=== PATIENT | female | born 1935 | race Caucasian/White ===

== ENCOUNTER 2020-12-04 07:10 | Inpatient (IN) | payer MEDICARE ==
--- NOTE | 2020-12-04 07:35 | EDM.PDOC ---
ED HPI GENERAL MEDICAL PROBLEM - General Chief Complaint: General Stated Complaint: CHILLS Time Seen by Provider: 12/04/20 07:25 Source of Information: Reports: Patient History Limitations: Reports: No Limitations - History of Present Illness INITIAL COMMENTS - FREE TEXT/NARRATIVE: 85-year-old female who is a somewhat rambling historian but does report that she has been having intermittent cough and chills for about the past 3 weeks but beginning Friday she has had worsening cough with nausea and vomiting and persisting chills. She states that she has been able to eat and drink but really hasn't had much of an appetite. The cough has been productive of white/yellow phlegm and was worse last night with several episodes of emesis after the cough. This morning beginning at 5 AM, she developed shaking chills but was unable to measure her temperature because "I can't really see". No diarrhea. No dysuria or hematuria. She denies any pain at present and reports that she has had no pain is associated with this. She would rate her pain now as a 0/10. She feels very fatigued and somewhat short of breath. No syncope or presyncope. She presents to the emergency department via private vehicle by one of her neighbors. The neighbor that brought the patient and feels that the patient is somewhat confused about events but the patient is oriented to person, place and time but she seems somewhat confabulatory about the details surrounding her illness. There are no other associated signs or symptoms. There are no other modifying factors. Onset: Other (? 3 weeks ago) Duration: Getting Worse Location: Reports: Other (No pain) Quality: Reports: Other (Not applicable) Context: Reports: Other (As above.) Associated Symptoms: Reports: Cough, Fever/Chills, Malaise, Nausea/Vomiting, Shortness of Breath Treatments LEAD COOK: Reports: Other (see below) (Nothing.) - Related Data Allergies Allergy/AdvReac Type Severity Reaction Status Date / Time No Known Allergies Allergy Verified 12/04/20 07:20 Home Meds: Home Meds Omeprazole 20 mg PO 12/04/20 [History] lisinopriL [Lisinopril] 10 mg PO 12/04/20 [History] Past Medical History Cardiovascular History: Reports: Hypertension Gastrointestinal History: Reports: Other (See Below) Other Gastrointestinal History: acid reflux - Past Surgical History HEENT Surgical History: Reports: Cataract Surgery GI Surgical History: Reports: EGD (Multiple times) Neurological Surgical History: Reports: Lumbar Spine Musculoskeletal Surgical History: Reports: Arthroscopic Knee (Right knee) Social & Family History - Tobacco Use Tobacco Use Status *Q: Never Tobacco User - Caffeine Use Caffeine Use: Reports: Coffee - Alcohol Use Alcohol Use History: No - Recreational Drug Use Recreational Drug Use: No - Living Situation & Occupation Occupation: Retired ED ROS GENERAL - Review of Systems Review Of Systems: See Below Constitutional: Reports: Chills, Malaise HEENT: Reports: No Symptoms Respiratory: Reports: Shortness of Breath, Cough, Sputum Cardiovascular: Reports: No Symptoms GI/Abdominal: Reports: Nausea, Vomiting : Reports: No Symptoms Musculoskeletal: Reports: Other (Body aches.) Skin: Reports: No Symptoms Neurological: Reports: Weakness (Generalized) Psychiatric: Reports: No Symptoms Hematologic/Lymphatic: Reports: No Symptoms Immunologic: Reports: Other (Patient has had the 2 vaccines for Covid) ED EXAM, GENERAL - Physical Exam Exam: See Below Exam Limited By: No Limitations General Appearance: Alert, WD/WN, Mild Distress Eye Exam: Bilateral Eye: EOMI, Normal Inspection, PERRL Ears: Normal External Exam, Hearing Grossly Normal Ear Exam: Bilateral Ear: Auricle Normal Nose: Normal Inspection, Normal Mucosa, No Blood Throat/Mouth: Normal Voice, No Airway Compromise, Other (Dry mucous membranes) Head: Atraumatic, Normocephalic Neck: Normal Inspection, Supple, Non-Tender, Full Range of Motion Respiratory/Chest: No Respiratory Distress, No Accessory Muscle Use, Chest Non- Tender, Rales (Left sided), Rhonchi (Left-sided) Cardiovascular: Regular Rate, Rhythm, No Gallop, No Murmur, Tachycardia Peripheral Pulses: 2+: Radial (L), Radial (R), Dorsalis Pedis (L), Dorsalis Pedis (R) GI/Abdominal: Normal Bowel Sounds, Soft, Non-Tender, No Mass Back Exam: Normal Inspection, Full Range of Motion Extremities: Normal Inspection, Normal Range of Motion, Non-Tender, No Pedal Edema, Normal Capillary Refill Neurological: Alert, Oriented, CN II-XII Intact Psychiatric: Normal Affect Skin Exam: Warm, Dry, Intact, Normal Color, No Rash #1 Interpretation EKG Date: 12/04/20 Time: 07:53 Rhythm: Other (Sinus tachycardia) Rate (Beats/Min): 115 [place]: LAD-Left [place] Deviation P-Wave: Enlarged (After atrial enlargement) QRS: Normal ST-T: Normal QT: Prolonged (Prolonged QTc.) Comparison: NA - No Prior EKG Course - Vital Signs Last Recorded V/S: Last Vital Signs Temp 36.9 C 12/04/20 11:39 Pulse 64 12/04/20 12:18 Resp 20 12/04/20 11:39 BP 123/63 12/04/20 12:18 Pulse Ox 93 L 12/04/20 11:39 - Orders/Labs/Meds Orders: Active Orders 24 hr Category Date Time Status EKG Documentation Completion [RC] ASDIRECTED Care 12/04/20 07:49 Active CULTURE BLOOD [BC] Urgent Lab 12/04/20 08:20 Received CULTURE BLOOD [BC] Urgent Lab 12/04/20 08:25 Received Sodium Chloride 0.9% [Normal Saline] 1,000 ml Med 12/04/20 08:00 Active IV ASDIRECTED Sodium Chloride 0.9% [Saline Flush] Med 12/04/20 07:48 Active 10 ml FLUSH ASDIRECTED PRN Blood Culture x2 Reflex Set [OM.PC] Urgent Oth 12/04/20 07:48 Ordered Peripheral IV Insertion Adult [OM.PC] Routine Oth 12/04/20 07:48 Ordered EKG 12 Lead [EK] Routine Ther 12/04/20 07:48 Ordered Medication Orders Acetaminophen (Acetaminophen 325 Mg Tab) 650 mg PO Q4H PRN PRN Reason: Pain (Mild 1-3)/fever Ceftriaxone Sodium (Ceftriaxone 2 Gm Vial) 2 gm IVPUSH Q24H [facility] Last Admin: 12/04/20 11:20 Dose: 2 gm Documented by: JYOTI Sodium Chloride (Normal Saline) 1,000 mls @ 100 mls/hr IV ASDIRECTED [facility] Last Admin: 12/04/20 08:55 Dose: 100 mls/hr Documented by: JYOTI Azithromycin 500 mg/ Sodium (Chloride) 250 mls @ 250 mls/hr IV Q24H [facility] Last Admin: 12/04/20 11:29 Dose: 250 mls/hr Documented by: JYOTI Ondansetron HCl (Ondansetron 4 Mg/2 Ml Sdv) 4 mg IV Q6H PRN PRN Reason: Nausea/Vomiting Sodium Chloride (Sodium Chloride 0.9% 10 Ml Syringe) 10 ml FLUSH ASDIRECTED PRN PRN Reason: Keep Vein Open Last Admin: 12/04/20 08:15 Dose: 10 ml Documented by: JYOTI Labs: Laboratory Tests 12/04/20 12/04/20 12/04/20 Range/Units 08:04 08:20 08:20 WBC 13.0 H (3.0-10.3) x10-3/uL RBC 3.84 (3.60-5.20) x10(6)uL Hgb 12.6 (11.4-15.5) g/dL Hct 37.9 (34.2-48.2) % MCV 98.6 (76.7-100.5) fL MCH 32.7 (23.9-33.9) pg MCHC 33.2 (31.9-34.8) g/dL RDW 13.2 (12.3-16.5) % Plt Count 259 (151-488) x10(3)uL MPV 8.2 (7.1-12.4) fL Add Manual Diff Yes Neutrophils % (Manual) 89 H (46-82) % Lymphocytes % (Manual) 8 L (13-37) % Monocytes % (Manual) 3 L (4-12) % Sodium 140 (135-145) mmol/L Potassium 3.7 (3.5-5.3) mmol/L Chloride 101 (100-110) mmol/L Carbon Dioxide 27 (21-32) mmol/L BUN 16 (7-18) mg/dL Creatinine 0.8 (0.55-1.02) mg/dL Est Cr Clr Drug Dosing 44.08 mL/min Estimated GFR (MDRD) > 60 (>60) BUN/Creatinine Ratio 20.0 (9-20) Glucose 108 (80-116) mg/dL Lactic Acid (0.4-2.0) mmol/L Calcium 7.8 L (8.6-10.2) mg/dL Magnesium 1.6 L (1.8-2.5) mg/dL Total Bilirubin 0.5 (0.1-1.3) mg/dL AST 16 (5-25) IU/L ALT 19 (12-36) U/L Alkaline Phosphatase 65 (56-112) IU/L Troponin I (4.0-60.3) pg/mL C-Reactive Protein (0.5-0.9) mg/dL Total Protein 6.8 (6.0-8.0) g/dL Albumin 3.4 (3.2-4.6) g/dL Globulin 3.4 g/dL Albumin/Globulin Ratio 1.0 Urine Color Yellow (YELLOW) Urine Appearance Clear (CLEAR) Urine pH 5.0 (5.0-6.5) Ur Specific Byron 1.020 (1.010-1.025) Urine Protein Negative (NEGATIVE) mg/dL Urine Glucose (UA) Normal (NORMAL) mg/dL Urine Ketones Negative (NEGATIVE) mg/dL Urine Occult Blood Moderate H (NEGATIVE) Urine Nitrite Negative (NEGATIVE) Urine Bilirubin Negative (NEGATIVE) Urine Urobilinogen Normal (NEGATIVE) mg/dL Ur Leukocyte Esterase Negative (NEGATIVE) Urine RBC 0-5 (0-5) Urine WBC 0-5 (0-5) Ur Squamous Epith Cells Few H (NS,R,O) Urine Bacteria Few H (NS) SARS-CoV-2 RNA (SANTOS) (NEGATIVE) 12/04/20 12/04/20 12/04/20 Range/Units 08:20 08:20 08:30 WBC (3.0-10.3) x10-3/uL RBC (3.60-5.20) x10(6)uL Hgb (11.4-15.5) g/dL Hct (34.2-48.2) % MCV (76.7-100.5) fL MCH (23.9-33.9) pg MCHC (31.9-34.8) g/dL RDW (12.3-16.5) % Plt Count (151-488) x10(3)uL MPV (7.1-12.4) fL Add Manual Diff Neutrophils % (Manual) (46-82) % Lymphocytes % (Manual) (13-37) % Monocytes % (Manual) (4-12) % Sodium (135-145) mmol/L Potassium (3.5-5.3) mmol/L Chloride (100-110) mmol/L Carbon Dioxide (21-32) mmol/L BUN (7-18) mg/dL Creatinine (0.55-1.02) mg/dL Est Cr Clr Drug Dosing mL/min Estimated GFR (MDRD) (>60) BUN/Creatinine Ratio (9-20) Glucose (80-116) mg/dL Lactic Acid 1.1 (0.4-2.0) mmol/L Calcium (8.6-10.2) mg/dL Magnesium (1.8-2.5) mg/dL Total Bilirubin (0.1-1.3) mg/dL AST (5-25) IU/L ALT (12-36) U/L Alkaline Phosphatase (56-112) IU/L Troponin I 18.3 (4.0-60.3) pg/mL C-Reactive Protein 6.6 H* (0.5-0.9) mg/dL Total Protein (6.0-8.0) g/dL Albumin (3.2-4.6) g/dL Globulin g/dL Albumin/Globulin Ratio Urine Color (YELLOW) Urine Appearance (CLEAR) Urine pH (5.0-6.5) Ur Specific Byron (1.010-1.025) Urine Protein (NEGATIVE) mg/dL Urine Glucose (UA) (NORMAL) mg/dL Urine Ketones (NEGATIVE) mg/dL Urine Occult Blood (NEGATIVE) Urine Nitrite (NEGATIVE) Urine Bilirubin (NEGATIVE) Urine Urobilinogen (NEGATIVE) mg/dL Ur Leukocyte Esterase (NEGATIVE) Urine RBC (0-5) Urine WBC (0-5) Ur Squamous Epith Cells (NS,R,O) Urine Bacteria (NS) SARS-CoV-2 RNA (SANTOS) Negative (NEGATIVE) Meds: Medications Generic Name Dose Route Start Last Admin Trade Name Freq PRN Reason Stop Dose Admin Acetaminophen 650 mg 12/04/20 10:52 Acetaminophen 325 Mg Tab PO Q4H PRN Pain (Mild 1-3)/fever Ceftriaxone Sodium 2 gm 12/04/20 11:00 12/04/20 11:20 Ceftriaxone 2 Gm Vial IVPUSH 2 gm Q24H [facility] Administration Sodium Chloride 1,000 mls @ 100 mls/hr 12/04/20 08:00 12/04/20 08:55 Normal Saline IV 100 mls/hr ASDIRECTED [facility] Administration Azithromycin 500 mg/ Sodium 250 mls @ 250 mls/hr 12/04/20 11:00 12/04/20 11:29 Chloride IV 250 mls/hr Q24H [facility] Administration Ondansetron HCl 4 mg 12/04/20 10:52 Ondansetron 4 Mg/2 Ml Sdv IV Q6H PRN Nausea/Vomiting Sodium Chloride 10 ml 12/04/20 07:48 12/04/20 08:15 Sodium Chloride 0.9% 10 Ml Syringe FLUSH 10 ml ASDIRECTED PRN Administration Keep Vein Open Discontinued Medications Generic Name Dose Route Start Last Admin Trade Name Freq PRN Reason Stop Dose Admin Sodium Chloride 500 mls @ 999 mls/hr 12/04/20 07:51 12/04/20 08:20 Normal Saline IV 12/04/20 08:21 999 mls/hr .BOLUS ONE Administration - Radiology Interpretation Free Text/Narrative:: Chest x-ray PA and lateral showed diffuse pneumonia in the left lung and some pneumonia in the right lung. - Re-Assessments/Exams Free Text/Narrative Re-Assessment/Exam: 12/04/20 10:35: The patient's white blood cell count is 13.0. Her serum electrolyte profile is normal. Her lactate is normal. Her urinalysis was normal. Her chest x-ray shows no pneumonia with left being greater than right. Tachycardia has resolved with IV fluid hydration. With an O2 saturation between 90-94%. She has had no further vomiting. However, the patient did have shaking chills. She has a rather extensive pneumonia in her left lung. She is an octogenarian with some chronic medical issues. She has signs of early sepsis. I feel that she will need admission with IV antibiotics and IV fluid therapy. Her care will take at least 2 midnight hospital stay. I discussed all this with the patient and she would be in agreement with admission to [facility], [place]. In addition, I discussed the patient's CODE STATUS and she tells me that she is a FULL CODE. I will call and discuss the patient's case with Dr. Waller, hospitalist at [facility], [place]. 12/04/20 10:45: I discussed the patient's case with Dr. Waller and he has agreed to admit the patient. I did place some interim orders and he will be placing additional orders. The patient will be treated with Rocephin 2 g IV and Zithromax 500 mg IV. Departure - Departure Time of Disposition: 10:46 Disposition: Admitted As Inpatient 68 Condition: Fair (Stable.) Clinical Impression: Bilateral pneumonia Qualifiers: Pneumonia type: due to unspecified organism Lung location: unspecified part of lung Qualified Code(s): J18.9 - Pneumonia, unspecified organism Sepsis Qualifiers: Sepsis type: sepsis due to unspecified organism Sepsis acute organ dysfunction status: with acute organ dysfunction Severe sepsis acute organ dysfunction type: encephalopathy Severe sepsis shock status: without septic shock Qualified Code(s): A41.9 - Sepsis, unspecified organism - Discharge Information Sepsis Event Note (ED) - Evaluation Sepsis Screening Result: Possible Sepsis Risk - Focused Exam Vital Signs: Vital Signs Temp Pulse Resp BP Pulse Ox 12/04/20 10:30 60 20 135/70 94 L 12/04/20 10:00 94 20 142/64 H 93 L 12/04/20 09:30 91 20 140/62 93 L 12/04/20 09:00 111 H 20 137/60 93 L 12/04/20 08:30 122 H 20 129/83 94 L 12/04/20 08:00 117 H 20 159/72 H 92 L 12/04/20 07:10 38.0 C 124 H 20 167/90 H 92 L - My Orders Last 24 Hours: My Active Orders 12/04/20 07:48 Sodium Chloride 0.9% [Saline Flush] 10 ml FLUSH ASDIRECTED PRN Blood Culture x2 Reflex Set [OM.PC] Urgent Peripheral IV Insertion Adult [OM.PC] Routine EKG 12 Lead [EK] Routine 12/04/20 07:49 EKG Documentation Completion [RC] ASDIRECTED 12/04/20 08:00 Sodium Chloride 0.9% [Normal Saline] 1,000 ml IV ASDIRECTED 12/04/20 08:20 CULTURE BLOOD [BC] Urgent 12/04/20 08:25 CULTURE BLOOD [BC] Urgent - Assessment/Plan Last 24 Hours: My Active Orders 12/04/20 07:48 Sodium Chloride 0.9% [Saline Flush] 10 ml FLUSH ASDIRECTED PRN Blood Culture x2 Reflex Set [OM.PC] Urgent Peripheral IV Insertion Adult [OM.PC] Routine EKG 12 Lead [EK] Routine 12/04/20 07:49 EKG Documentation Completion [RC] ASDIRECTED 12/04/20 08:00 Sodium Chloride 0.9% [Normal Saline] 1,000 ml IV ASDIRECTED 12/04/20 08:20 CULTURE BLOOD [BC] Urgent 12/04/20 08:25 CULTURE BLOOD [BC] Urgent
[2020-12-04] MEDS ORDERED: Sodium Chloride 0.9% 500 ML IV ONE (07:51)
[2020-12-04] MEDS ORDERED: Sodium Chloride 0.9% 1,000 ML IV SCH (08:00)
[2020-12-04] MEDS: Sodium Chloride 0.9% 10 ML Syringe FLUSH PRN ×2 (08:15→19:49)
--- NOTE | 2020-12-04 10:40 | CR ---
INDICATION: Cough, fever, chills. CHEST TWO VIEWS: PA and lateral views of the chest 12/04/20 were compared with 09/20/12 revealing apparent resolution of an infiltrate that had a rounded appearance in the right lung base. There is now central infiltration extensively on the left with perhaps some very minimal patchy infiltration centrally on the right. Findings may be on the basis of pneumonia and should be correlated clinically. No definite CHF is seen. The heart appears to be somewhat enlarged overall. The aorta is tortuous with calcification in the arch. Bridging hyperostotic changes noted in the midthoracic spine. IMPRESSION: Mostly left central pneumonia extending from the upper lung field into the lung base. Followup to clearing is recommended as other etiologies such as neoplasia, although less likely, is difficult to entirely exclude. Report was given by phone to Dr. Carty at approximately 1022 hours, 12/04/20. [facility]
[2020-12-04] MEDS ORDERED: Ondansetron 4 MG/2 ML SDV IV PRN (10:52)
[2020-12-04] MEDS: cefTRIAXone 2 GM Vial IVPUSH SCH (11:20)
[2020-12-04] MEDS: Azithromycin 500 MG in Sodium Chloride 0.9% 250 ML IV SCH (11:29)
[2020-12-04] MEDS: Acetaminophen 325 MG Tab PO PRN ×2 (12:45→21:12)
--- NOTE | 2020-12-04 12:54 | PCM.HP.2 ---
H&P History of Present Illness - General Date of Service: 12/04/20 Admit Problem/Dx: Admission Diagnosis/Problem Admission Diagnosis/Problem Bilateral pneumonia - History of Present Illness Initial Comments - Free Text/Narative: 85-year-old lady resented to the emergency department after having intermittent cough and chills for about the past 3 weeks. Friday, approximately 2 days ago, she has had increased cough with nausea, vomiting, and persisting chills. She has not had difficulty with eating or drinking but may not have her regular appetite over the last 2 to 3 weeks. This morning she awoke to fever, chills, shaking, cough productive of yellow phlegm, and posttussive emesis. She denies sick contact, pain, chest pain, abdominal pain, diarrhea. She was brought to the emergency department by friends who describe her as being not herself. Evaluation in the emergency department revealed sepsis with leukocytosis and likely ammonia on chest x-ray. She will be admitted as inpatient and treated wi th IV antibiotics including Rocephin and azithromycin. She will be given occupational physical therapy. Onset of Symptoms: Reports: Gradual Duration of Symptoms: Reports: Week(s): - Related Data Allergies/Adverse Reactions: Allergies Allergy/AdvReac Type Severity Reaction Status Date / Time No Known Allergies Allergy Verified 12/04/20 07:20 Home Medications: Home Meds Omeprazole 20 mg PO 12/04/20 [History] lisinopriL [Lisinopril] 10 mg PO 12/04/20 [History] Past Medical History - Past Health History Medical/Surgical History: Denies Medical/Surgical History HEENT History: Reports: Cataract, Macular Degeneration Cardiovascular History: Reports: Heart Murmur, Hypertension Gastrointestinal History: Reports: GERD, Other (See Below) Other Gastrointestinal History: acid reflux Genitourinary History: Reports: None [employer] History: Reports: Musculoskeletal History: Reports: Arthritis, Back Pain, Chronic, Neck Pain, Chronic Neurological History: Reports: None Psychiatric History: Reports: None Hematologic History: Reports: None Immunologic History: Reports: None Oncologic (Cancer) History: Reports: None - Infectious Disease History Infectious Disease History: Reports: Chicken Pox, Influenza, Measles - Past Surgical History Head Surgeries/Procedures: Reports: None HEENT Surgical History: Reports: Cataract Surgery GI Surgical History: Reports: Colonoscopy, EGD Neurological Surgical History: Reports: Lumbar Spine Musculoskeletal Surgical History: Reports: Arthroscopic Knee Social & Family History - Family History Family Medical History: No Pertinent Family History - Tobacco Use Tobacco Use Status *Q: Never Tobacco User - Caffeine Use Caffeine Use: Reports: Coffee - Recreational Drug Use Recreational Drug Use: No - Living Situation & Occupation Occupation: Retired H&P Review of Systems - Review of Systems: Review Of Systems: See Below General: Reports: Fever, Chills, Malaise, Weakness, Fatigue, Diaphoresis, Decreased Appetite HEENT: Reports: No Symptoms Pulmonary: Reports: Shortness of Breath, Cough Cardiovascular: Reports: No Symptoms Gastrointestinal: Reports: Nausea, Vomiting Genitourinary: Reports: No Symptoms Musculoskeletal: Reports: No Symptoms Skin: Reports: No Symptoms Neurological: Reports: Confusion Hematologic/Lymphatic: Reports: No Symptoms Immunologic: Reports: No Symptoms Exam - Exam Exam: See Below - Vital Signs Vital Signs: Last Vital Signs Temp 36.9 C 12/04/20 11:39 Pulse 64 12/04/20 12:18 Resp 20 12/04/20 11:39 BP 123/63 12/04/20 12:18 Pulse Ox 93 L 12/04/20 11:39 Weight: 65.227 kg - Exam Quality Assessment: Supplemental Oxygen, DVT Prophylaxis, Skin Breakdown General: Alert, Oriented, Cooperative HEENT: PERRLA, EOMI Neck: Supple Lungs: Normal Respiratory Effort, Rales Cardiovascular: Regular Rate, Regular Rhythm, Systolic Murmur GI/Abdominal Exam: Normal Bowel Sounds Back Exam: Normal Inspection Extremities: Normal Inspection Peripheral Pulses: 2+: Radial (L), Radial (R), Dorsalis Pedis (L), Dorsalis Pedis (R) Skin: Warm, Dry Neurological: Cranial Nerves Intact Neuro Extensive - Mental Status: Alert, Oriented x3, Normal Mood/Affect Psychiatric: Alert, Normal Affect, Normal Mood - Patient Data Lab Results Last 24 hrs: Laboratory Results - last 24 hr 12/04/20 12/04/20 12/04/20 Range/Units 08:04 08:20 08:20 WBC 13.0 H (3.0-10.3) x10-3/uL RBC 3.84 (3.60-5.20) x10(6)uL Hgb 12.6 (11.4-15.5) g/dL Hct 37.9 (34.2-48.2) % MCV 98.6 (76.7-100.5) fL MCH 32.7 (23.9-33.9) pg MCHC 33.2 (31.9-34.8) g/dL RDW 13.2 (12.3-16.5) % Plt Count 259 (151-488) x10(3)uL MPV 8.2 (7.1-12.4) fL Add Manual Diff Yes Neutrophils % (Manual) 89 H (46-82) % Lymphocytes % (Manual) 8 L (13-37) % Monocytes % (Manual) 3 L (4-12) % Sodium 140 (135-145) mmol/L Potassium 3.7 (3.5-5.3) mmol/L Chloride 101 (100-110) mmol/L Carbon Dioxide 27 (21-32) mmol/L BUN 16 (7-18) mg/dL Creatinine 0.8 (0.55-1.02) mg/dL Est Cr Clr Drug Dosing 44.08 mL/min Estimated GFR (MDRD) > 60 (>60) BUN/Creatinine Ratio 20.0 (9-20) Glucose 108 (80-116) mg/dL Lactic Acid (0.4-2.0) mmol/L Calcium 7.8 L (8.6-10.2) mg/dL Magnesium 1.6 L (1.8-2.5) mg/dL Total Bilirubin 0.5 (0.1-1.3) mg/dL AST 16 (5-25) IU/L ALT 19 (12-36) U/L Alkaline Phosphatase 65 (56-112) IU/L Troponin I (4.0-60.3) pg/mL C-Reactive Protein (0.5-0.9) mg/dL Total Protein 6.8 (6.0-8.0) g/dL Albumin 3.4 (3.2-4.6) g/dL Globulin 3.4 g/dL Albumin/Globulin Ratio 1.0 Urine Color Yellow (YELLOW) Urine Appearance Clear (CLEAR) Urine pH 5.0 (5.0-6.5) Ur Specific Britt 1.020 (1.010-1.025) Urine Protein Negative (NEGATIVE) mg/dL Urine Glucose (UA) Normal (NORMAL) mg/dL Urine Ketones Negative (NEGATIVE) mg/dL Urine Occult Blood Moderate H (NEGATIVE) Urine Nitrite Negative (NEGATIVE) Urine Bilirubin Negative (NEGATIVE) Urine Urobilinogen Normal (NEGATIVE) mg/dL Ur Leukocyte Esterase Negative (NEGATIVE) Urine RBC 0-5 (0-5) Urine WBC 0-5 (0-5) Ur Squamous Epith Cells Few H (NS,R,O) Urine Bacteria Few H (NS) SARS-CoV-2 RNA (SANTOS) (NEGATIVE) 12/04/20 12/04/20 12/04/20 Range/Units 08:20 08:20 08:30 WBC (3.0-10.3) x10-3/uL RBC (3.60-5.20) x10(6)uL Hgb (11.4-15.5) g/dL Hct (34.2-48.2) % MCV (76.7-100.5) fL MCH (23.9-33.9) pg MCHC (31.9-34.8) g/dL RDW (12.3-16.5) % Plt Count (151-488) x10(3)uL MPV (7.1-12.4) fL Add Manual Diff Neutrophils % (Manual) (46-82) % Lymphocytes % (Manual) (13-37) % Monocytes % (Manual) (4-12) % Sodium (135-145) mmol/L Potassium (3.5-5.3) mmol/L Chloride (100-110) mmol/L Carbon Dioxide (21-32) mmol/L BUN (7-18) mg/dL Creatinine (0.55-1.02) mg/dL Est Cr Clr Drug Dosing mL/min Estimated GFR (MDRD) (>60) BUN/Creatinine Ratio (9-20) Glucose (80-116) mg/dL Lactic Acid 1.1 (0.4-2.0) mmol/L Calcium (8.6-10.2) mg/dL Magnesium (1.8-2.5) mg/dL Total Bilirubin (0.1-1.3) mg/dL AST (5-25) IU/L ALT (12-36) U/L Alkaline Phosphatase (56-112) IU/L Troponin I 18.3 (4.0-60.3) pg/mL C-Reactive Protein 6.6 H* (0.5-0.9) mg/dL Total Protein (6.0-8.0) g/dL Albumin (3.2-4.6) g/dL Globulin g/dL Albumin/Globulin Ratio Urine Color (YELLOW) Urine Appearance (CLEAR) Urine pH (5.0-6.5) Ur Specific Britt (1.010-1.025) Urine Protein (NEGATIVE) mg/dL Urine Glucose (UA) (NORMAL) mg/dL Urine Ketones (NEGATIVE) mg/dL Urine Occult Blood (NEGATIVE) Urine Nitrite (NEGATIVE) Urine Bilirubin (NEGATIVE) Urine Urobilinogen (NEGATIVE) mg/dL Ur Leukocyte Esterase (NEGATIVE) Urine RBC (0-5) Urine WBC (0-5) Ur Squamous Epith Cells (NS,R,O) Urine Bacteria (NS) SARS-CoV-2 RNA (SANTOS) Negative (NEGATIVE) Result Diagrams: 12/04/20 08:20 12/04/20 08:20 Sepsis Event Note - Evaluation Sepsis Screening Result: Sepsis Risk - Focused Exam Vital Signs: Vital Signs Temp Pulse Resp BP Pulse Ox 12/04/20 12:18 64 123/63 12/04/20 11:39 36.9 C 108 H 20 188/67 H 93 L 12/04/20 10:30 60 20 135/70 94 L 12/04/20 10:00 94 20 142/64 H 93 L 12/04/20 09:30 91 20 140/62 93 L 12/04/20 09:00 111 H 20 137/60 93 L 12/04/20 08:30 122 H 20 129/83 94 L 12/04/20 08:00 117 H 20 159/72 H 92 L 12/04/20 07:10 38.0 C 124 H 20 167/90 H 92 L - Problem List (1) Nausea and vomiting SNOMED Code(s): 28618682 ICD Code: R11.2 - NAUSEA WITH VOMITING, UNSPECIFIED Status: Acute Current Visit: Yes (2) Decreased appetite SNOMED Code(s): 82130484 ICD Code: R63.0 - ANOREXIA Status: Acute Current Visit: Yes (3) Confusion SNOMED Code(s): 478519356 ICD Code: R41.0 - DISORIENTATION, UNSPECIFIED Status: Acute Current Visit: Yes (4) Bilateral pneumonia SNOMED Code(s): 284380569 ICD Code: J18.9 - PNEUMONIA, UNSPECIFIED ORGANISM Status: Acute Current Visit: Yes Qualifiers: Pneumonia type: due to unspecified organism Lung location: unspecified part of lung Qualified Code(s): J18.9 - Pneumonia, unspecified organism (5) Sepsis SNOMED Code(s): 16926096 ICD Code: A41.9 - SEPSIS, UNSPECIFIED ORGANISM Status: Acute Current Visit: Yes Qualifiers: Sepsis type: sepsis due to unspecified organism Sepsis acute organ dysfunction status: with acute organ dysfunction Severe sepsis acute organ dysfunction type: encephalopathy Severe sepsis shock status: without septic shock Qualified Code(s): A41.9 - Sepsis, unspecified organism; R65.20 - Severe sepsis without septic shock; G93.40 - Encephalopathy, unspecified (6) GERD (gastroesophageal reflux disease) SNOMED Code(s): 724972755 ICD Code: K21.9 - GASTRO-ESOPHAGEAL REFLUX DISEASE WITHOUT ESOPHAGITIS Status: Chronic Current Visit: Yes (7) Hypertension SNOMED Code(s): 76356391 ICD Code: I10 - ESSENTIAL (PRIMARY) HYPERTENSION Status: Chronic Current Visit: Yes (8) Leukocytosis SNOMED Code(s): 711665806, 534726564 ICD Code: D72.829 - ELEVATED WHITE BLOOD CELL COUNT, UNSPECIFIED Status: Acute Current Visit: Yes (9) Hypomagnesemia SNOMED Code(s): 822137220 ICD Code: E83.42 - HYPOMAGNESEMIA Status: Acute Current Visit: Yes Problem List Initiated/Reviewed/Updated: Yes Orders Last 24hrs: Active Orders 24 hr Category Date Time Status Admission Status [Patient Status] [ADT] Routine ADT 12/04/20 10:46 Active Intake and Output [RC] QSHIFT Care 12/04/20 10:53 Active May Shower [RC] ASDIRECTED Care 12/04/20 10:52 Active Oxygen Therapy [RC] PRN Care 12/04/20 10:52 Active Supplement (Dietary) [Dietary Supplements] [RC] Care 12/04/20 12:48 Ordered WITHMEALSANDBED Up With Assistance [RC] ASDIRECTED Care 12/04/20 10:52 Active Vital Signs [RC] Q4H Care 12/04/20 10:52 Active OT Evaluation and Treatment [CONS] Routine Cons 12/04/20 10:52 Active PT Evaluation and Treatment [CONS] Routine Cons 12/04/20 10:52 Active 2 Gram Sodium Diet [DIET] Diet 12/04/20 Lunch Active CULTURE BLOOD [BC] Urgent Lab 12/04/20 08:20 Received CULTURE BLOOD [BC] Urgent Lab 12/04/20 08:25 Received Acetaminophen [TylenoL] Med 12/04/20 10:52 Active 650 mg PO Q4H PRN Azithromycin [Zithromax] 500 mg Med 12/04/20 11:00 Active Sodium Chloride 0.9% [Normal Saline (AdvBag)] 250 ml IV Q24H Ondansetron [Zofran] Med 12/04/20 10:52 Active 4 mg IV Q6H PRN Sodium Chloride 0.9% [Saline Flush] Med 12/04/20 07:48 Active 10 ml FLUSH ASDIRECTED PRN cefTRIAXone [Rocephin] Med 12/04/20 11:00 Active 2 gm IVPUSH Q24H lisinopriL [Prinivil] Med 12/04/20 13:00 Unverified DOSE UNIT RTE FREQ Blood Culture x2 Reflex Set [OM.PC] Urgent Oth 12/04/20 07:48 Ordered Peripheral IV Insertion Adult [OM.PC] Routine Oth 12/04/20 07:48 Ordered Resuscitation Status Routine Resus Stat 12/04/20 10:52 Ordered EKG 12 Lead [EK] Routine Ther 12/04/20 07:48 Ordered Medication Orders Acetaminophen (Acetaminophen 325 Mg Tab) 650 mg PO Q4H PRN PRN Reason: Pain (Mild 1-3)/fever Last Admin: 12/04/20 12:45 Dose: 650 mg Documented by: SAIGE Ceftriaxone Sodium (Ceftriaxone 2 Gm Vial) 2 gm IVPUSH Q24H [facility] Last Admin: 12/04/20 11:20 Dose: 2 gm Documented by: JYOTI Azithromycin 500 mg/ Sodium (Chloride) 250 mls @ 250 mls/hr IV Q24H [facility] Last Admin: 12/04/20 11:29 Dose: 250 mls/hr Documented by: JYOTI Ondansetron HCl (Ondansetron 4 Mg/2 Ml Sdv) 4 mg IV Q6H PRN PRN Reason: Nausea/Vomiting Sodium Chloride (Sodium Chloride 0.9% 10 Ml Syringe) 10 ml FLUSH ASDIRECTED PRN PRN Reason: Keep Vein Open Last Admin: 12/04/20 08:15 Dose: 10 ml Documented by: JYOTI Assessment/Plan Comment:: 1. Admit to inpatient due to bilateral pneumonia, age, leukocytosis. Initial treatment will be IV antibiotics with ceftriaxone and azithromycin. Monitor and replenish electrolytes 2. Restart lisinopril, home medication, for hypertension 3. Occupational physical therapy evaluation and treatment 4. DVT prophylaxis: Enoxaparin, 40 mg subcu daily 5. GI prophylaxis: Protonix 40 mg daily po 6. Disposition: Likely 2 to 3 days discharge to home with continued oral antibiotics
[2020-12-04] MEDS ORDERED: Enoxaparin 60 MG/0.6 ML Syringe SUBCUT SCH (13:00)
[2020-12-04] MEDS ORDERED: Magnesium Sulfate/Water 4 GM in Premix Bag 1 BAG IV ONE (13:04)
[2020-12-04] MEDS ORDERED: Magnesium Sulfate/Water 2 GM/50 ML BAG IV ONE (13:30)
[2020-12-04] MEDS: Enoxaparin 40 MG/0.4 ML Syringe SUBCUT SCH (13:56)
[2020-12-04] MEDS ORDERED: Lisinopril 10 MG Tab PO ONE (14:00)
[2020-12-04] MEDS: Pantoprazole 40 MG Tab.CR PO SCH (21:12)
[2020-12-05] MEDS: Lisinopril 10 MG Tab PO SCH (08:28)
--- NOTE | 2020-12-05 08:40 | PCM.PN ---
- General Info Date of Service: 12/05/20 Admission Dx/Problem (Free Text): Admission Diagnosis/Problem Admission Diagnosis/Problem Bilateral pneumonia Subjective Update: Patient states that she feels better today, her breathing is better, strength is better, she slept well last night for the first time in several days, and she has no new concerns or complaints at this time Functional Status: Reports: Pain Controlled, Tolerating Diet, Ambulating, Urinating - Review of Systems General: Reports: Weakness, Fatigue, Other (Improved) HEENT: Reports: No Symptoms Pulmonary: Reports: Shortness of Breath, Cough, Other (Improved) Cardiovascular: Reports: No Symptoms Gastrointestinal: Reports: No Symptoms Genitourinary: Reports: No Symptoms Musculoskeletal: Reports: No Symptoms Skin: Reports: No Symptoms Neurological: Reports: No Symptoms Psychiatric: Reports: No Symptoms - Patient Data Vitals - Most Recent: Last Vital Signs Temp 36.7 C 12/05/20 08:26 Pulse 81 12/05/20 08:26 Resp 20 12/05/20 08:26 BP 137/69 12/05/20 08:28 Pulse Ox 97 12/05/20 08:26 Weight - Most Recent: 66.587 kg I&O - Last 24 Hours: Intake & Output 12/04/20 12/05/20 12/05/20 22:59 06:59 14:59 Intake Total 1670 150 Output Total 650 900 Balance 1020 -750 Lab Results Last 24 Hours: Laboratory Results - last 24 hr 12/04/20 12/04/20 12/04/20 Range/Units 08:04 08:20 08:20 WBC 13.0 H (3.0-10.3) x10-3/uL RBC 3.84 (3.60-5.20) x10(6)uL Hgb 12.6 (11.4-15.5) g/dL Hct 37.9 (34.2-48.2) % MCV 98.6 (76.7-100.5) fL MCH 32.7 (23.9-33.9) pg MCHC 33.2 (31.9-34.8) g/dL RDW 13.2 (12.3-16.5) % Plt Count 259 (151-488) x10(3)uL MPV 8.2 (7.1-12.4) fL Neut % (Auto) (30.8-76.2) % Lymph % (Auto) (18.4-52.1) % Loving % (Auto) (4.4-15.7) % Eos % (Auto) (0.6-8.1) % Baso % (Auto) (0.2-1.5) % Neut # (Auto) (1.5-6.3) x10-3/uL Lymph # (Auto) (1.0-4.4) x10-3/uL Loving # (Auto) (0.3-1.0) x10-3/uL Eos # (Auto) (0.0-0.8) x10-3/uL Baso # (Auto) (0.0-0.1) x10-3/uL Add Manual Diff Yes Neutrophils % (Manual) 89 H (46-82) % Lymphocytes % (Manual) 8 L (13-37) % Monocytes % (Manual) 3 L (4-12) % Sodium 140 (135-145) mmol/L Potassium 3.7 (3.5-5.3) mmol/L Chloride 101 (100-110) mmol/L Carbon Dioxide 27 (21-32) mmol/L BUN 16 (7-18) mg/dL Creatinine 0.8 (0.55-1.02) mg/dL Est Cr Clr Drug Dosing 44.08 mL/min Estimated GFR (MDRD) > 60 (>60) BUN/Creatinine Ratio 20.0 (9-20) Glucose 108 (80-116) mg/dL Lactic Acid (0.4-2.0) mmol/L Calcium 7.8 L (8.6-10.2) mg/dL Magnesium 1.6 L (1.8-2.5) mg/dL Total Bilirubin 0.5 (0.1-1.3) mg/dL AST 16 (5-25) IU/L ALT 19 (12-36) U/L Alkaline Phosphatase 65 (56-112) IU/L Troponin I (4.0-60.3) pg/mL C-Reactive Protein (0.5-0.9) mg/dL Total Protein 6.8 (6.0-8.0) g/dL Albumin 3.4 (3.2-4.6) g/dL Globulin 3.4 g/dL Albumin/Globulin Ratio 1.0 Urine Color Yellow (YELLOW) Urine Appearance Clear (CLEAR) Urine pH 5.0 (5.0-6.5) Ur Specific Elsie 1.020 (1.010-1.025) Urine Protein Negative (NEGATIVE) mg/dL Urine Glucose (UA) Normal (NORMAL) mg/dL Urine Ketones Negative (NEGATIVE) mg/dL Urine Occult Blood Moderate H (NEGATIVE) Urine Nitrite Negative (NEGATIVE) Urine Bilirubin Negative (NEGATIVE) Urine Urobilinogen Normal (NEGATIVE) mg/dL Ur Leukocyte Esterase Negative (NEGATIVE) Urine RBC 0-5 (0-5) Urine WBC 0-5 (0-5) Ur Squamous Epith Cells Few H (NS,R,O) Urine Bacteria Few H (NS) SARS-CoV-2 RNA (SANTOS) (NEGATIVE) 12/04/20 12/04/20 12/04/20 Range/Units 08:20 08:20 08:30 WBC (3.0-10.3) x10-3/uL RBC (3.60-5.20) x10(6)uL Hgb (11.4-15.5) g/dL Hct (34.2-48.2) % MCV (76.7-100.5) fL MCH (23.9-33.9) pg MCHC (31.9-34.8) g/dL RDW (12.3-16.5) % Plt Count (151-488) x10(3)uL MPV (7.1-12.4) fL Neut % (Auto) (30.8-76.2) % Lymph % (Auto) (18.4-52.1) % Loving % (Auto) (4.4-15.7) % Eos % (Auto) (0.6-8.1) % Baso % (Auto) (0.2-1.5) % Neut # (Auto) (1.5-6.3) x10-3/uL Lymph # (Auto) (1.0-4.4) x10-3/uL Loving # (Auto) (0.3-1.0) x10-3/uL Eos # (Auto) (0.0-0.8) x10-3/uL Baso # (Auto) (0.0-0.1) x10-3/uL Add Manual Diff Neutrophils % (Manual) (46-82) % Lymphocytes % (Manual) (13-37) % Monocytes % (Manual) (4-12) % Sodium (135-145) mmol/L Potassium (3.5-5.3) mmol/L Chloride (100-110) mmol/L Carbon Dioxide (21-32) mmol/L BUN (7-18) mg/dL Creatinine (0.55-1.02) mg/dL Est Cr Clr Drug Dosing mL/min Estimated GFR (MDRD) (>60) BUN/Creatinine Ratio (9-20) Glucose (80-116) mg/dL Lactic Acid 1.1 (0.4-2.0) mmol/L Calcium (8.6-10.2) mg/dL Magnesium (1.8-2.5) mg/dL Total Bilirubin (0.1-1.3) mg/dL AST (5-25) IU/L ALT (12-36) U/L Alkaline Phosphatase (56-112) IU/L Troponin I 18.3 (4.0-60.3) pg/mL C-Reactive Protein 6.6 H* (0.5-0.9) mg/dL Total Protein (6.0-8.0) g/dL Albumin (3.2-4.6) g/dL Globulin g/dL Albumin/Globulin Ratio Urine Color (YELLOW) Urine Appearance (CLEAR) Urine pH (5.0-6.5) Ur Specific Elsie (1.010-1.025) Urine Protein (NEGATIVE) mg/dL Urine Glucose (UA) (NORMAL) mg/dL Urine Ketones (NEGATIVE) mg/dL Urine Occult Blood (NEGATIVE) Urine Nitrite (NEGATIVE) Urine Bilirubin (NEGATIVE) Urine Urobilinogen (NEGATIVE) mg/dL Ur Leukocyte Esterase (NEGATIVE) Urine RBC (0-5) Urine WBC (0-5) Ur Squamous Epith Cells (NS,R,O) Urine Bacteria (NS) SARS-CoV-2 RNA (SANTOS) Negative (NEGATIVE) 12/05/20 12/05/20 Range/Units 06:20 06:20 WBC 13.7 H (3.0-10.3) x10-3/uL RBC 3.11 L (3.60-5.20) x10(6)uL Hgb 10.2 L (11.4-15.5) g/dL Hct 30.9 L (34.2-48.2) % MCV 99.4 (76.7-100.5) fL MCH 32.9 (23.9-33.9) pg MCHC 33.1 (31.9-34.8) g/dL RDW 13.1 (12.3-16.5) % Plt Count 210 (151-488) x10(3)uL MPV 8.2 (7.1-12.4) fL Neut % (Auto) 78.2 H (30.8-76.2) % Lymph % (Auto) 17.1 L (18.4-52.1) % Loving % (Auto) 3.5 L (4.4-15.7) % Eos % (Auto) 1.0 (0.6-8.1) % Baso % (Auto) 0.2 (0.2-1.5) % Neut # (Auto) 10.7 H (1.5-6.3) x10-3/uL Lymph # (Auto) 2.3 (1.0-4.4) x10-3/uL Loving # (Auto) 0.5 (0.3-1.0) x10-3/uL Eos # (Auto) 0.1 (0.0-0.8) x10-3/uL Baso # (Auto) 0.0 (0.0-0.1) x10-3/uL Add Manual Diff Neutrophils % (Manual) (46-82) % Lymphocytes % (Manual) (13-37) % Monocytes % (Manual) (4-12) % Sodium (135-145) mmol/L Potassium (3.5-5.3) mmol/L Chloride (100-110) mmol/L Carbon Dioxide (21-32) mmol/L BUN (7-18) mg/dL Creatinine (0.55-1.02) mg/dL Est Cr Clr Drug Dosing mL/min Estimated GFR (MDRD) (>60) BUN/Creatinine Ratio (9-20) Glucose (80-116) mg/dL Lactic Acid (0.4-2.0) mmol/L Calcium (8.6-10.2) mg/dL Magnesium 2.1 (1.8-2.5) mg/dL Total Bilirubin (0.1-1.3) mg/dL AST (5-25) IU/L ALT (12-36) U/L Alkaline Phosphatase (56-112) IU/L Troponin I (4.0-60.3) pg/mL C-Reactive Protein (0.5-0.9) mg/dL Total Protein (6.0-8.0) g/dL Albumin (3.2-4.6) g/dL Globulin g/dL Albumin/Globulin Ratio Urine Color (YELLOW) Urine Appearance (CLEAR) Urine pH (5.0-6.5) Ur Specific Elsie (1.010-1.025) Urine Protein (NEGATIVE) mg/dL Urine Glucose (UA) (NORMAL) mg/dL Urine Ketones (NEGATIVE) mg/dL Urine Occult Blood (NEGATIVE) Urine Nitrite (NEGATIVE) Urine Bilirubin (NEGATIVE) Urine Urobilinogen (NEGATIVE) mg/dL Ur Leukocyte Esterase (NEGATIVE) Urine RBC (0-5) Urine WBC (0-5) Ur Squamous Epith Cells (NS,R,O) Urine Bacteria (NS) SARS-CoV-2 RNA (SANTOS) (NEGATIVE) Joel Results Last 24 Hours: Microbiology 12/04/20 08:25 Aerobic Blood Culture - Preliminary Blood - Venous - Lab Draw NO GROWTH AFTER 1 DAY Anaerobic Blood Culture - Preliminary NO GROWTH AFTER 1 DAY 12/04/20 08:20 Aerobic Blood Culture - Preliminary Blood - Venous NO GROWTH AFTER 1 DAY Anaerobic Blood Culture - Preliminary NO GROWTH AFTER 1 DAY Med Orders - Current: Current Medications Acetaminophen (Acetaminophen 325 Mg Tab) 650 mg PO Q4H PRN PRN Reason: Pain (Mild 1-3)/fever Last Admin: 12/04/20 21:12 Dose: 650 mg Documented by: Ceftriaxone Sodium (Ceftriaxone 2 Gm Vial) 2 gm IVPUSH Q24H FORMERLY [facility], 1928–1983 Last Admin: 12/04/20 11:20 Dose: 2 gm Documented by: Enoxaparin Sodium (Enoxaparin 40 Mg/0.4 Ml Syringe) 40 mg SUBCUT DAILY@1300 FOR[facility], [facility]–1983 Last Admin: 12/04/20 13:56 Dose: 40 mg Documented by: Azithromycin 500 mg/ Sodium (Chloride) 250 mls @ 250 mls/hr IV Q24H [facility], [facility]1983 Last Admin: 12/04/20 11:29 Dose: 250 mls/hr Documented by: Lisinopril (Lisinopril 10 Mg Tab) 10 mg PO DAILY FOR[facility], [facility]1983 Last Admin: 12/05/20 08:28 Dose: 10 mg Documented by: Ondansetron HCl (Ondansetron 4 Mg/2 Ml Sdv) 4 mg IV Q6H PRN PRN Reason: Nausea/Vomiting Pantoprazole Sodium (Pantoprazole 40 Mg Tab.Cr) 40 mg PO BEDTIME FOR[facility], [facility]1983 Last Admin: 12/04/20 21:12 Dose: 40 mg Documented by: Sodium Chloride (Sodium Chloride 0.9% 10 Ml Syringe) 10 ml FLUSH ASDIRECTED PRN PRN Reason: Keep Vein Open Last Admin: 12/04/20 19:49 Dose: 10 ml Documented by: Discontinued Medications Enoxaparin Sodium (Enoxaparin 60 Mg/0.6 Ml Syringe) 60 mg SUBCUT Q24H [facility], [facility]1983 Sodium Chloride (Normal Saline) 500 mls @ 999 mls/hr IV .BOLUS ONE Stop: 12/04/20 08:21 Last Admin: 12/04/20 08:20 Dose: 999 mls/hr Documented by: Sodium Chloride (Normal Saline) 1,000 mls @ 100 mls/hr IV ASDIRECTED [facility], [facility] Last Admin: 12/04/20 08:55 Dose: 100 mls/hr Documented by: Magnesium Sulfate (Magnesium Sulfate In Water 2 Gm/50 Ml) 2 gm in 50 mls @ 25 mls/hr IV ONETIME ONE Stop: 12/04/20 15:29 Last Admin: 12/04/20 13:57 Dose: 25 mls/hr Documented by: Lisinopril (Lisinopril 10 Mg Tab) 10 mg PO ONETIME ONE Stop: 12/04/20 14:01 Last Admin: 12/04/20 14:14 Dose: 10 mg Documented by: Comments:: Patient was lying in bed supine, awake, alert, interactive, pleasant. Patient was able to easily stand on her own and stand next to the bed throughout physical exam - Exam Quality Assessment: Supplemental Oxygen, DVT Prophylaxis, Skin Breakdown General: Alert, Oriented, Cooperative, No Acute Distress HEENT: EOMI Lungs: Decreased Breath Sounds, Crackles Cardiovascular: Regular Rate, Irregular Rhythm, Murmurs GI/Abdominal Exam: Normal Bowel Sounds Extremities: Normal Inspection Peripheral Pulses: 2+: Radial (L), Radial (R), Dorsalis Pedis (L), Dorsalis Pedis (R) Skin: Warm, Dry Neurological: No New Focal Deficit Psy/Mental Status: Alert, Normal Affect, Normal Mood - Patient Data Lab Results Last 24 hrs: Laboratory Results - last 24 hr 12/04/20 12/04/20 12/04/20 Range/Units 08:04 08:20 08:20 WBC 13.0 H (3.0-10.3) x10-3/uL RBC 3.84 (3.60-5.20) x10(6)uL Hgb 12.6 (11.4-15.5) g/dL Hct 37.9 (34.2-48.2) % MCV 98.6 (76.7-100.5) fL MCH 32.7 (23.9-33.9) pg MCHC 33.2 (31.9-34.8) g/dL RDW 13.2 (12.3-16.5) % Plt Count 259 (151-488) x10(3)uL MPV 8.2 (7.1-12.4) fL Neut % (Auto) (30.8-76.2) % Lymph % (Auto) (18.4-52.1) % Loving % (Auto) (4.4-15.7) % Eos % (Auto) (0.6-8.1) % Baso % (Auto) (0.2-1.5) % Neut # (Auto) (1.5-6.3) x10-3/uL Lymph # (Auto) (1.0-4.4) x10-3/uL Loving # (Auto) (0.3-1.0) x10-3/uL Eos # (Auto) (0.0-0.8) x10-3/uL Baso # (Auto) (0.0-0.1) x10-3/uL Add Manual Diff Yes Neutrophils % (Manual) 89 H (46-82) % Lymphocytes % (Manual) 8 L (13-37) % Monocytes % (Manual) 3 L (4-12) % Sodium 140 (135-145) mmol/L Potassium 3.7 (3.5-5.3) mmol/L Chloride 101 (100-110) mmol/L Carbon Dioxide 27 (21-32) mmol/L BUN 16 (7-18) mg/dL Creatinine 0.8 (0.55-1.02) mg/dL Est Cr Clr Drug Dosing 44.08 mL/min Estimated GFR (MDRD) > 60 (>60) BUN/Creatinine Ratio 20.0 (9-20) Glucose 108 (80-116) mg/dL Lactic Acid (0.4-2.0) mmol/L Calcium 7.8 L (8.6-10.2) mg/dL Magnesium 1.6 L (1.8-2.5) mg/dL Total Bilirubin 0.5 (0.1-1.3) mg/dL AST 16 (5-25) IU/L ALT 19 (12-36) U/L Alkaline Phosphatase 65 (56-112) IU/L Troponin I (4.0-60.3) pg/mL C-Reactive Protein (0.5-0.9) mg/dL Total Protein 6.8 (6.0-8.0) g/dL Albumin 3.4 (3.2-4.6) g/dL Globulin 3.4 g/dL Albumin/Globulin Ratio 1.0 Urine Color Yellow (YELLOW) Urine Appearance Clear (CLEAR) Urine pH 5.0 (5.0-6.5) Ur Specific Elsie 1.020 (1.010-1.025) Urine Protein Negative (NEGATIVE) mg/dL Urine Glucose (UA) Normal (NORMAL) mg/dL Urine Ketones Negative (NEGATIVE) mg/dL Urine Occult Blood Moderate H (NEGATIVE) Urine Nitrite Negative (NEGATIVE) Urine Bilirubin Negative (NEGATIVE) Urine Urobilinogen Normal (NEGATIVE) mg/dL Ur Leukocyte Esterase Negative (NEGATIVE) Urine RBC 0-5 (0-5) Urine WBC 0-5 (0-5) Ur Squamous Epith Cells Few H (NS,R,O) Urine Bacteria Few H (NS) SARS-CoV-2 RNA (SANTOS) (NEGATIVE) 12/04/20 12/04/20 12/04/20 Range/Units 08:20 08:20 08:30 WBC (3.0-10.3) x10-3/uL RBC (3.60-5.20) x10(6)uL Hgb (11.4-15.5) g/dL Hct (34.2-48.2) % MCV (76.7-100.5) fL MCH (23.9-33.9) pg MCHC (31.9-34.8) g/dL RDW (12.3-16.5) % Plt Count (151-488) x10(3)uL MPV (7.1-12.4) fL Neut % (Auto) (30.8-76.2) % Lymph % (Auto) (18.4-52.1) % Loving % (Auto) (4.4-15.7) % Eos % (Auto) (0.6-8.1) % Baso % (Auto) (0.2-1.5) % Neut # (Auto) (1.5-6.3) x10-3/uL Lymph # (Auto) (1.0-4.4) x10-3/uL Loving # (Auto) (0.3-1.0) x10-3/uL Eos # (Auto) (0.0-0.8) x10-3/uL Baso # (Auto) (0.0-0.1) x10-3/uL Add Manual Diff Neutrophils % (Manual) (46-82) % Lymphocytes % (Manual) (13-37) % Monocytes % (Manual) (4-12) % Sodium (135-145) mmol/L Potassium (3.5-5.3) mmol/L Chloride (100-110) mmol/L Carbon Dioxide (21-32) mmol/L BUN (7-18) mg/dL Creatinine (0.55-1.02) mg/dL Est Cr Clr Drug Dosing mL/min Estimated GFR (MDRD) (>60) BUN/Creatinine Ratio (9-20) Glucose (80-116) mg/dL Lactic Acid 1.1 (0.4-2.0) mmol/L Calcium (8.6-10.2) mg/dL Magnesium (1.8-2.5) mg/dL Total Bilirubin (0.1-1.3) mg/dL AST (5-25) IU/L ALT (12-36) U/L Alkaline Phosphatase (56-112) IU/L Troponin I 18.3 (4.0-60.3) pg/mL C-Reactive Protein 6.6 H* (0.5-0.9) mg/dL Total Protein (6.0-8.0) g/dL Albumin (3.2-4.6) g/dL Globulin g/dL Albumin/Globulin Ratio Urine Color (YELLOW) Urine Appearance (CLEAR) Urine pH (5.0-6.5) Ur Specific Elsie (1.010-1.025) Urine Protein (NEGATIVE) mg/dL Urine Glucose (UA) (NORMAL) mg/dL Urine Ketones (NEGATIVE) mg/dL Urine Occult Blood (NEGATIVE) Urine Nitrite (NEGATIVE) Urine Bilirubin (NEGATIVE) Urine Urobilinogen (NEGATIVE) mg/dL Ur Leukocyte Esterase (NEGATIVE) Urine RBC (0-5) Urine WBC (0-5) Ur Squamous Epith Cells (NS,R,O) Urine Bacteria (NS) SARS-CoV-2 RNA (SANTOS) Negative (NEGATIVE) 12/05/20 12/05/20 Range/Units 06:20 06:20 WBC 13.7 H (3.0-10.3) x10-3/uL RBC 3.11 L (3.60-5.20) x10(6)uL Hgb 10.2 L (11.4-15.5) g/dL Hct 30.9 L (34.2-48.2) % MCV 99.4 (76.7-100.5) fL MCH 32.9 (23.9-33.9) pg MCHC 33.1 (31.9-34.8) g/dL RDW 13.1 (12.3-16.5) % Plt Count 210 (151-488) x10(3)uL MPV 8.2 (7.1-12.4) fL Neut % (Auto) 78.2 H (30.8-76.2) % Lymph % (Auto) 17.1 L (18.4-52.1) % Loving % (Auto) 3.5 L (4.4-15.7) % Eos % (Auto) 1.0 (0.6-8.1) % Baso % (Auto) 0.2 (0.2-1.5) % Neut # (Auto) 10.7 H (1.5-6.3) x10-3/uL Lymph # (Auto) 2.3 (1.0-4.4) x10-3/uL Loving # (Auto) 0.5 (0.3-1.0) x10-3/uL Eos # (Auto) 0.1 (0.0-0.8) x10-3/uL Baso # (Auto) 0.0 (0.0-0.1) x10-3/uL Add Manual Diff Neutrophils % (Manual) (46-82) % Lymphocytes % (Manual) (13-37) % Monocytes % (Manual) (4-12) % Sodium (135-145) mmol/L Potassium (3.5-5.3) mmol/L Chloride (100-110) mmol/L Carbon Dioxide (21-32) mmol/L BUN (7-18) mg/dL Creatinine (0.55-1.02) mg/dL Est Cr Clr Drug Dosing mL/min Estimated GFR (MDRD) (>60) BUN/Creatinine Ratio (9-20) Glucose (80-116) mg/dL Lactic Acid (0.4-2.0) mmol/L Calcium (8.6-10.2) mg/dL Magnesium 2.1 (1.8-2.5) mg/dL Total Bilirubin (0.1-1.3) mg/dL AST (5-25) IU/L ALT (12-36) U/L Alkaline Phosphatase (56-112) IU/L Troponin I (4.0-60.3) pg/mL C-Reactive Protein (0.5-0.9) mg/dL Total Protein (6.0-8.0) g/dL Albumin (3.2-4.6) g/dL Globulin g/dL Albumin/Globulin Ratio Urine Color (YELLOW) Urine Appearance (CLEAR) Urine pH (5.0-6.5) Ur Specific Elsie (1.010-1.025) Urine Protein (NEGATIVE) mg/dL Urine Glucose (UA) (NORMAL) mg/dL Urine Ketones (NEGATIVE) mg/dL Urine Occult Blood (NEGATIVE) Urine Nitrite (NEGATIVE) Urine Bilirubin (NEGATIVE) Urine Urobilinogen (NEGATIVE) mg/dL Ur Leukocyte Esterase (NEGATIVE) Urine RBC (0-5) Urine WBC (0-5) Ur Squamous Epith Cells (NS,R,O) Urine Bacteria (NS) SARS-CoV-2 RNA (SANTOS) (NEGATIVE) Result Diagrams: 12/05/20 06:20 12/04/20 08:20 Joel Results Last 24 hrs: Microbiology 12/04/20 08:25 Aerobic Blood Culture - Preliminary Blood - Venous - Lab Draw NO GROWTH AFTER 1 DAY Anaerobic Blood Culture - Preliminary NO GROWTH AFTER 1 DAY 12/04/20 08:20 Aerobic Blood Culture - Preliminary Blood - Venous NO GROWTH AFTER 1 DAY Anaerobic Blood Culture - Preliminary NO GROWTH AFTER 1 DAY Sepsis Event Note - Evaluation Sepsis Screening Result: No Definite Risk - Focused Exam Vital Signs: Vital Signs Temp Pulse Resp BP BP Pulse Ox 12/05/20 08:28 137/69 12/05/20 08:26 36.7 C 81 20 137/69 97 12/05/20 05:21 36.9 C 72 18 146/65 H 95 12/05/20 01:30 36.8 C 73 16 120/63 94 L - Problem List & Annotations (1) Nausea and vomiting SNOMED Code(s): 16635301 Code(s): R11.2 - NAUSEA WITH VOMITING, UNSPECIFIED Status: Acute Current Visit: Yes (2) Decreased appetite SNOMED Code(s): 69751921 Code(s): R63.0 - ANOREXIA Status: Acute Current Visit: Yes (3) Confusion SNOMED Code(s): 587504797 Code(s): R41.0 - DISORIENTATION, UNSPECIFIED Status: Acute Current Visit: Yes (4) Bilateral pneumonia SNOMED Code(s): 539558910 Code(s): J18.9 - PNEUMONIA, UNSPECIFIED ORGANISM Status: Acute Current Visit: Yes Qualifiers: Pneumonia type: due to unspecified organism Lung location: unspecified part of lung Qualified Code(s): J18.9 - Pneumonia, unspecified organism (5) Sepsis SNOMED Code(s): 30593311 Code(s): A41.9 - SEPSIS, UNSPECIFIED ORGANISM Status: Acute Current Visit: Yes Qualifiers: Sepsis type: sepsis due to unspecified organism Sepsis acute organ dysfunction status: with acute organ dysfunction Severe sepsis acute organ dysfunction type: encephalopathy Severe sepsis shock status: without septic shock Qualified Code(s): A41.9 - Sepsis, unspecified organism; R65.20 - Severe sepsis without septic shock; G93.40 - Encephalopathy, unspecified (6) GERD (gastroesophageal reflux disease) SNOMED Code(s): 373966316 Code(s): K21.9 - GASTRO-ESOPHAGEAL REFLUX DISEASE WITHOUT ESOPHAGITIS Status: Chronic Current Visit: Yes (7) Hypertension SNOMED Code(s): 97221813 Code(s): I10 - ESSENTIAL (PRIMARY) HYPERTENSION Status: Chronic Current Visit: Yes (8) Leukocytosis SNOMED Code(s): 278345503, 858269437 Code(s): D72.829 - ELEVATED WHITE BLOOD CELL COUNT, UNSPECIFIED Status: Acute Current Visit: Yes (9) Hypomagnesemia SNOMED Code(s): 539577230 Code(s): E83.42 - HYPOMAGNESEMIA Status: Acute Current Visit: Yes - Problem List Review Problem List Initiated/Reviewed/Updated: Yes - My Orders Last 24 Hours: My Active Orders 12/04/20 12:48 Supplement (Dietary) [Dietary Supplements] [RC] WITHMEALSANDBED 12/04/20 13:00 Enoxaparin [Lovenox] 40 mg SUBCUT DAILY@1300 12/04/20 21:00 Pantoprazole [ProTONIX] 40 mg PO BEDTIME 12/05/20 09:00 lisinopriL [Prinivil] 10 mg PO DAILY 12/06/20 BASIC METABOLIC PANEL,BMP [CHEM] Routine CBC WITH AUTO DIFF [HEME] Routine MAGNESIUM [CHEM] Routine - Plan Plan:: 1. Admit to inpatient due to bilateral pneumonia, age, leukocytosis. Initial treatment will be IV antibiotics with ceftriaxone and azithromycin. Monitor and replenish electrolytes 2. Restart lisinopril, home medication, for hypertension 3. Occupational physical therapy evaluation and treatment 4. DVT prophylaxis: Enoxaparin, 40 mg subcu daily 5. GI prophylaxis: Protonix 40 mg daily po 6. Disposition: IV antibiotics today, oral antibiotics tomorrow, if the patient continues to improve likely discharge on with oral antibiotics
[2020-12-05] MEDS: cefTRIAXone 2 GM Vial IVPUSH SCH (11:50)
[2020-12-05] MEDS: Azithromycin 500 MG in Sodium Chloride 0.9% 250 ML IV SCH (11:50)
[2020-12-05] MEDS: Enoxaparin 40 MG/0.4 ML Syringe SUBCUT SCH (14:42)
[2020-12-05] MEDS: Sodium Chloride 0.9% 10 ML Syringe FLUSH PRN (20:19)
[2020-12-05] MEDS: Pantoprazole 40 MG Tab.CR PO SCH (20:19)
[2020-12-05] MEDS: Acetaminophen 325 MG Tab PO PRN (20:26)
[2020-12-06] MEDS ORDERED: Loperamide 2 MG Cap PO PRN (07:30)
[2020-12-06] MEDS: Lisinopril 10 MG Tab PO SCH (08:05)
[2020-12-06] MEDS ORDERED: Cefdinir 300 MG Cap PO SCH (09:00)
[2020-12-06] MEDS ORDERED: Lactobacillus Rhamnosus GG (Probiotic) Cap PO SCH (10:00)
[2020-12-06] MEDS ORDERED: Azithromycin 500 MG Tab PO ONE (12:00)
[2020-12-06] MEDS: Enoxaparin 40 MG/0.4 ML Syringe SUBCUT SCH (12:47)
--- NOTE | 2020-12-06 15:40 | PCM.DCSUM1 ---
Discharge Summary - Hospital Course Free Text/Narrative:: 85-year-old lady admitted to the hospital for treatment of sepsis, pneumonia and treated with IV azithromycin and ceftriaxone over the last 2-1/2 days. She has recovered well and has requested discharge home. She was transitioned to oral antibiotics yesterday and has continued to do well with the leukocytosis resolved at this time. She did have some diarrhea overnight and this morning but was given Imodium and diarrhea has resolved at this time. She will be discharged home with Cefdinir, 300 mg twice a day for 8 more days. She completed a three-day course of azithromycin 500 mg per day. She will also be discharged home with a probiotic and additional Imodium. HPI Initial Comments: 85-year-old lady presented to the emergency department after having intermittent cough and chills for about the past 3 weeks. Friday, approximately 2 days ago, she has had increased cough with nausea, vomiting, and persisting chills. She has not had difficulty with eating or drinking but may not have her regular appetite over the last 2 to 3 weeks. This morning she awoke to fever, chills, shaking, cough productive of yellow phlegm, and posttussive emesis. She denies sick contact, pain, chest pain, abdominal pain, diarrhea. She was brought to the emergency department by friends who describe her as being not herself. Evaluation in the emergency department revealed sepsis with leukocytosis and likely ammonia on chest x-ray. She will be admitted as inpatient and treated with IV antibiotics including Rocephin and azithromycin. She will be given occupational physical therapy. Diagnosis: Stroke: No - Discharge Data Discharge Date: 12/06/20 Discharge Disposition: Home, Self-Care 01 Condition: Good - Referral to Home Health Primary Care Physician: Velasquez Joyner MD - Discharge Diagnosis/Problem(s) (1) Nausea and vomiting SNOMED Code(s): 87964288 ICD Code: R11.2 - NAUSEA WITH VOMITING, UNSPECIFIED Status: Resolved Current Visit: Yes (2) Decreased appetite SNOMED Code(s): 62583136 ICD Code: R63.0 - ANOREXIA Status: Resolved Current Visit: Yes (3) Confusion SNOMED Code(s): 105350941 ICD Code: R41.0 - DISORIENTATION, UNSPECIFIED Status: Resolved Current Visit: Yes (4) Bilateral pneumonia SNOMED Code(s): 471030611 ICD Code: J18.9 - PNEUMONIA, UNSPECIFIED ORGANISM Status: Acute Current Visit: Yes Qualifiers: Pneumonia type: due to unspecified organism Lung location: unspecified part of lung Qualified Code(s): J18.9 - Pneumonia, unspecified organism (5) Sepsis SNOMED Code(s): 27028594 ICD Code: A41.9 - SEPSIS, UNSPECIFIED ORGANISM Status: Resolved Current Visit: Yes Qualifiers: Sepsis type: sepsis due to unspecified organism Sepsis acute organ dysfunction status: with acute organ dysfunction Severe sepsis acute organ dysfunction type: encephalopathy Severe sepsis shock status: without septic shock Qualified Code(s): A41.9 - Sepsis, unspecified organism; R65.20 - Severe sepsis without septic shock; G93.40 - Encephalopathy, unspecified (6) GERD (gastroesophageal reflux disease) SNOMED Code(s): 798264359 ICD Code: K21.9 - GASTRO-ESOPHAGEAL REFLUX DISEASE WITHOUT ESOPHAGITIS Status: Chronic Current Visit: Yes (7) Hypertension SNOMED Code(s): 45546066 ICD Code: I10 - ESSENTIAL (PRIMARY) HYPERTENSION Status: Chronic Current Visit: Yes (8) Leukocytosis SNOMED Code(s): 408364663, 990667618 ICD Code: D72.829 - ELEVATED WHITE BLOOD CELL COUNT, UNSPECIFIED Status: Resolved Current Visit: Yes (9) Hypomagnesemia SNOMED Code(s): 733796145 ICD Code: E83.42 - HYPOMAGNESEMIA Status: Resolved Current Visit: Yes - Patient Summary/Data Consults: Consultations 12/04/20 10:52 OT Evaluation and Treatment [CONS] Routine Please Evaluate and Treat. OT Reason for Consult: Other (Type Response) Pending Discharge: All of the above This query below is only for informational purposes and is not editable. Admission Diagnosis/Problem: Bilateral pneumonia PT Evaluation and Treatment [CONS] Routine Please Evaluate and Treat. PT Reason for Consult: Other (Type Response) Pending Discharge: Ambulation. Strengthening. Balance. This query below is only for informational purposes and is not editable. Admission Diagnosis/Problem: Bilateral pneumonia - Patient Instructions Diet: Heart Healthy Diet Activity: As Tolerated Driving: Do Not Drive Showering/Bathing: May Shower Notify Provider of: Fever, Increased Pain, Nausea and/or Vomiting - Discharge Plan *PRESCRIPTION DRUG MONITORING PROGRAM REVIEWED*: Not Applicable *COPY OF PRESCRIPTION DRUG MONITORING REPORT IN PATIENT PRATIMA: Not Applicable Prescriptions/Med Rec: L. Acidophilus/Pectin, [place] [Acidophilus Capsule] 1 each PO DAILY #14 capsule Loperamide [Imodium] 2 mg PO Q4H PRN #10 cap PRN Reason: Diarrhea Cefdinir [Omnicef] 300 mg PO BID #16 cap Home Medications: Home Meds Acetaminophen [Tylenol] 650 mg PO TID 12/04/20 [History] Aspirin [Halfprin] 81 mg PO BEDTIME 12/04/20 [History] Magnesium Oxide [Magnesium] 400 mg PO DAILY 12/04/20 [History] Mv-Min/Iron/Folic/Calcium/Vitk [Women's Multivitamin Tablet] 1 tab PO DAILY 12/04/20 [History] Omeprazole 20 mg PO BEDTIME 12/04/20 [History] lisinopriL [Lisinopril] 10 mg PO DAILY 12/04/20 [History] Cefdinir [Omnicef] 300 mg PO BID #16 cap 12/06/20 [Rx] L. Acidophilus/Pectin, [place] [Acidophilus Capsule] 1 each PO DAILY #14 capsule 12/06/20 [Rx] Loperamide [Imodium] 2 mg PO Q4H PRN #10 cap 12/06/20 [Rx] Patient Handouts: Community-Acquired Pneumonia, Adult, [facility] Forms: ED Department Discharge Referrals: Velasquez Joyner MD [Primary Care Provider] - - Discharge Summary/Plan Comment DC Time >30 min.: No Discharge Summary/Plan Comment: Patient encouraged to take her medications as directed and until completed and to follow-up with her primary care physician. - General Info Date of Service: 12/06/20 Admission Dx/Problem (Free Text: Admission Diagnosis/Problem Admission Diagnosis/Problem Bilateral pneumonia Subjective Update: Patient states that she is having some difficulty with liquid diarrhea that star vanessa late last night and has continued's morning but she otherwise feels well and wants to go home Functional Status: Reports: Pain Controlled, Tolerating Diet, Ambulating, Ur inating - Review of Systems General: Reports: No Symptoms HEENT: Reports: No Symptoms Pulmonary: Reports: No Symptoms Cardiovascular: Reports: No Symptoms Gastrointestinal: Reports: Diarrhea Genitourinary: Reports: No Symptoms Musculoskeletal: Reports: No Symptoms Skin: Reports: No Symptoms Neurological: Reports: No Symptoms Psychiatric: Reports: No Symptoms - Patient Data Vitals - Most Recent: Last Vital Signs Temp 36.5 C 12/06/20 08:00 Pulse 80 12/06/20 08:00 Resp 16 12/06/20 08:00 BP 156/87 H 12/06/20 08:05 Pulse Ox 97 12/06/20 10:00 Weight - Most Recent: 66.497 kg I&O - Last 24 hours: Intake & Output 12/06/20 12/06/20 12/06/20 06:59 14:59 22:59 Intake Total 100 400 Output Total 200 Balance -100 400 Lab Results - Last 24 hrs: Laboratory Results - last 24 hr 12/06/20 12/06/20 Range/Units 06:40 06:40 WBC 12.3 H (3.0-10.3) x10-3/uL RBC 3.22 L (3.60-5.20) x10(6)uL Hgb 10.6 L (11.4-15.5) g/dL Hct 31.8 L (34.2-48.2) % MCV 98.9 (76.7-100.5) fL MCH 32.8 (23.9-33.9) pg MCHC 33.2 (31.9-34.8) g/dL RDW 13.3 (12.3-16.5) % Plt Count 195 (151-488) x10(3)uL MPV 9.4 (7.1-12.4) fL Add Manual Diff Yes Neutrophils % (Manual) 71 (46-82) % Lymphocytes % (Manual) 21 (13-37) % Monocytes % (Manual) 7 (4-12) % Eosinophils % (Manual) 1 (0-5) % Sodium 142 (135-145) mmol/L Potassium 4.1 (3.5-5.3) mmol/L Chloride 105 (100-110) mmol/L Carbon Dioxide 30 (21-32) mmol/L BUN 10 (7-18) mg/dL Creatinine 0.6 (0.55-1.02) mg/dL Est Cr Clr Drug Dosing 58.77 mL/min Estimated GFR (MDRD) > 60 (>60) BUN/Creatinine Ratio 16.7 (9-20) Glucose 100 (80-116) mg/dL Calcium 7.5 L (8.6-10.2) mg/dL Magnesium 1.9 (1.8-2.5) mg/dL MARCELA Results - Last 24 hrs: Microbiology 12/04/20 08:25 Aerobic Blood Culture - Preliminary Blood - Venous - Lab Draw NO GROWTH AFTER 2 DAYS Anaerobic Blood Culture - Preliminary NO GROWTH AFTER 2 DAYS 12/04/20 08:20 Aerobic Blood Culture - Preliminary Blood - Venous NO GROWTH AFTER 2 DAYS Anaerobic Blood Culture - Preliminary NO GROWTH AFTER 2 DAYS Med Orders - Current: Current Medications Acetaminophen (Acetaminophen 325 Mg Tab) 650 mg PO Q4H PRN PRN Reason: Pain (Mild 1-3)/fever Last Admin: 12/05/20 20:26 Dose: 650 mg Documented by: Cefdinir (Cefdinir 300 Mg Cap) 300 mg PO BID [facility] Stop: 12/09/20 23:59 Last Admin: 12/06/20 08:06 Dose: 300 mg Documented by: Enoxaparin Sodium (Enoxaparin 40 Mg/0.4 Ml Syringe) 40 mg SUBCUT DAILY@1300 [facility] Last Admin: 12/06/20 12:47 Dose: 40 mg Documented by: Lactobacillus Rhamnosus (Lactobacillus Rhamnosus Gg (Probiotic) Cap) 1 cap PO DAILY [facility] Last Admin: 12/06/20 10:01 Dose: 1 cap Documented by: Lisinopril (Lisinopril 10 Mg Tab) 10 mg PO DAILY [facility] Last Admin: 12/06/20 08:05 Dose: 10 mg Documented by: Loperamide HCl (Loperamide 2 Mg Cap) 2 mg PO Q4H PRN PRN Reason: Diarrhea Last Admin: 12/06/20 07:56 Dose: 2 mg Documented by: Ondansetron HCl (Ondansetron 4 Mg/2 Ml Sdv) 4 mg IV Q6H PRN PRN Reason: Nausea/Vomiting Pantoprazole Sodium (Pantoprazole 40 Mg Tab.Cr) 40 mg PO BEDTIME [facility] Last Admin: 12/05/20 20:19 Dose: 40 mg Documented by: Sodium Chloride (Sodium Chloride 0.9% 10 Ml Syringe) 10 ml FLUSH ASDIRECTED PRN PRN Reason: Keep Vein Open Last Admin: 12/05/20 20:19 Dose: 10 ml Documented by: Discontinued Medications Azithromycin (Azithromycin 500 Mg Tab) 500 mg PO ONETIME ONE Stop: 12/06/20 12:01 Last Admin: 12/06/20 11:28 Dose: 500 mg Documented by: Ceftriaxone Sodium (Ceftriaxone 2 Gm Vial) 2 gm IVPUSH Q24H [facility] Last Admin: 12/05/20 11:50 Dose: 2 gm Documented by: Enoxaparin Sodium (Enoxaparin 60 Mg/0.6 Ml Syringe) 60 mg SUBCUT Q24H [facility] Sodium Chloride (Normal Saline) 500 mls @ 999 mls/hr IV .BOLUS ONE Stop: 12/04/20 08:21 Last Admin: 12/04/20 08:20 Dose: 999 mls/hr Documented by: Sodium Chloride (Normal Saline) 1,000 mls @ 100 mls/hr IV ASDIRECTED [facility] Last Admin: 12/04/20 08:55 Dose: 100 mls/hr Documented by: Azithromycin 500 mg/ Sodium (Chloride) 250 mls @ 250 mls/hr IV Q24H [facility] Last Admin: 12/05/20 11:50 Dose: 250 mls/hr Documented by: Magnesium Sulfate (Magnesium Sulfate In Water 2 Gm/50 Ml) 2 gm in 50 mls @ 25 mls/hr IV ONETIME ONE Stop: 12/04/20 15:29 Last Admin: 12/04/20 13:57 Dose: 25 mls/hr Documented by: Lisinopril (Lisinopril 10 Mg Tab) 10 mg PO ONETIME ONE Stop: 12/04/20 14:01 Last Admin: 12/04/20 14:14 Dose: 10 mg Documented by: Comments:: Patient was sitting in a chair next to the window, awake, alert, oriented, interactive, pleasant. She was able to easily stand and continue standing thro ughout the physical exam. - Exam Quality Assessment: Reports: Supplemental Oxygen, DVT Prophylaxis, Skin Breakdown General: Reports: Alert, Oriented, Cooperative, No Acute Distress HEENT: Reports: EOMI Lungs: Reports: Normal Respiratory Effort, Crackles Cardiovascular: Reports: Regular Rate, Regular Rhythm, Murmurs, Other (Systolic) GI/Abdominal Exam: Normal Bowel Sounds, Soft, Non-Tender Back Exam: Reports: Normal Inspection Extremities: Pedal Edema, Other (Trace bilateral lower extremity edema) Skin: Reports: Warm, Dry Neurological: Reports: No New Focal Deficit Psy/Mental Status: Reports: Alert, Normal Affect, Normal Mood
== END 2020-12-06 16:00 | disposition home or self-care (01) | DRG 871 ==
LOC: FB.ED 07:10 → FB.MS 10:46
PROVIDERS: ADMIT Student in an Organized Health Care Education/Training Program; ATTEND Student in an Organized Health Care Education/Training Program
DX: A41.9 Sepsis, unspecified organism (principal); J18.9 Pneumonia, unspecified organism; J15.9 Unspecified bacterial pneumonia; G93.40 Encephalopathy, unspecified; R65.20 Severe sepsis without septic shock; K21.9 Gastro-esophageal reflux disease without esophagitis; I10 Essential (primary) hypertension; E83.42 Hypomagnesemia; M19.90 Unspecified osteoarthritis, unspecified site; M54.9 Dorsalgia, unspecified; Z20.822 Contact with and (suspected) exposure to COVID-19; M54.2 Cervicalgia; G89.29 Other chronic pain; H35.30 Unspecified macular degeneration; Z98.49 Cataract extraction status, unspecified eye; Z79.899 Other long term (current) drug therapy
CPT/HCPCS: 36415; 71046; 80053; 81001; 83605; 83735; 84484; 85025; 86140; 87040 ×2; 93005; J7030; J7040; U0002; 80048; 94150; 99285-25; A9270-GY; J0456; J0696; J1650; J3475; J7050

== ENCOUNTER 2020-12-21 07:31 | Emergency (ER) | payer MEDICARE ==
--- NOTE | 2020-12-21 08:35 | EDM.PDOC ---
ED HPI GENERAL MEDICAL PROBLEM - General Chief Complaint: General Stated Complaint: PNEUMONIA Time Seen by Provider: 12/21/20 07:40 Source of Information: Reports: Patient, Family History Limitations: Reports: No Limitations - History of Present Illness INITIAL COMMENTS - FREE TEXT/NARRATIVE: Patient is an 85 YO WF who presented to the ED because of N/V x1 and chills but no fever. There is no cough or cold but is feeling weak. she felt the same way just like waishwarya she had pneumonia 3 weeks ago. - Related Data Allergies Allergy/AdvReac Type Severity Reaction Status Date / Time No Known Allergies Allergy Verified 12/04/20 07:20 Home Meds: Home Meds Acetaminophen [Tylenol] 650 mg PO TID 12/04/20 [History] Aspirin [Halfprin] 81 mg PO BEDTIME 12/04/20 [History] Magnesium Oxide [Magnesium] 400 mg PO DAILY 12/04/20 [History] Mv-Min/Iron/Folic/Calcium/Vitk [Women's Multivitamin Tablet] 1 tab PO DAILY 12/04/20 [History] Omeprazole 20 mg PO BEDTIME 12/04/20 [History] lisinopriL [Lisinopril] 10 mg PO DAILY 12/04/20 [History] Azithromycin [Zithromax] 500 mg PO DAILY #5 tab 12/21/20 [Rx] Ondansetron [Zofran ODT] 4 mg PO Q4H PRN #5 tab.dis 12/21/20 [Rx] Past Medical History - Past Health History Medical/Surgical History: Denies Medical/Surgical History HEENT History: Reports: Cataract, Macular Degeneration Cardiovascular History: Reports: Heart Murmur, Hypertension Gastrointestinal History: Reports: GERD, Other (See Below) Other Gastrointestinal History: acid reflux Genitourinary History: Reports: None [employer] History: Reports: Musculoskeletal History: Reports: Arthritis, Back Pain, Chronic, Neck Pain, Chronic Neurological History: Reports: None Psychiatric History: Reports: None Hematologic History: Reports: None Immunologic History: Reports: None Oncologic (Cancer) History: Reports: None - Infectious Disease History Infectious Disease History: Reports: Chicken Pox, Influenza, Measles - Past Surgical History Head Surgeries/Procedures: Reports: None HEENT Surgical History: Reports: Cataract Surgery GI Surgical History: Reports: Colonoscopy, EGD Neurological Surgical History: Reports: Lumbar Spine Musculoskeletal Surgical History: Reports: Arthroscopic Knee Social & Family History - Family History Family Medical History: No Pertinent Family History - Tobacco Use Tobacco Use Status *Q: Never Tobacco User - Caffeine Use Caffeine Use: Reports: Coffee - Recreational Drug Use Recreational Drug Use: No - Living Situation & Occupation Occupation: Retired ED ROS GENERAL - Review of Systems Review Of Systems: See Below Constitutional: Reports: Chills, Weakness HEENT: Reports: No Symptoms Respiratory: Reports: No Symptoms Cardiovascular: Reports: No Symptoms Endocrine: Reports: No Symptoms GI/Abdominal: Reports: No Symptoms : Reports: No Symptoms Musculoskeletal: Reports: No Symptoms Skin: Reports: No Symptoms Neurological: Reports: No Symptoms Psychiatric: Reports: No Symptoms Hematologic/Lymphatic: Reports: No Symptoms Immunologic: Reports: No Symptoms ED EXAM, GENERAL - Physical Exam Exam: See Below Exam Limited By: No Limitations General Appearance: Alert, No Apparent Distress Ears: Normal External Exam, Normal Canal Nose: Normal Inspection, Normal Mucosa, No Blood Throat/Mouth: Normal Inspection, Normal Lips, Normal Teeth Head: Atraumatic, Normocephalic Neck: Normal Inspection, Supple, Non-Tender, Full Range of Motion Respiratory/Chest: No Respiratory Distress, Lungs Clear, Decreased Breath Sounds Cardiovascular: Normal Peripheral Pulses, Regular Rate, Rhythm, No Edema, No Gallop GI/Abdominal: Normal Bowel Sounds, Soft, Non-Tender, No Organomegaly Back Exam: Normal Inspection, Full Range of Motion Extremities: Normal Inspection, Normal Range of Motion, Non-Tender Neurological: Alert, Oriented, CN II-XII Intact, Normal Cognition Skin Exam: Warm, Dry, Normal Color Course - Vital Signs Text/Narrative:: Lab/CXR resl was reviewed and discussed with patient and her daughter She want to be treated as an outpatient rather than stay in the hospital Last Recorded V/S: Last Vital Signs Temp 37.0 C 12/21/20 07:35 Pulse 112 H 12/21/20 07:35 Resp 20 12/21/20 07:35 BP 199/87 H 12/21/20 07:35 Pulse Ox 95 12/21/20 07:35 - Orders/Labs/Meds Orders: Active Orders 24 hr Category Date Time Status Chest 1V Frontal [CR] Stat Exams 12/21/20 07:49 Taken Labs: Laboratory Tests 12/21/20 12/21/20 12/21/20 Range/Units 07:55 07:55 07:55 WBC 12.9 H (3.0-10.3) x10-3/uL RBC 3.96 (3.60-5.20) x10(6)uL Hgb 12.6 (11.4-15.5) g/dL Hct 38.6 (34.2-48.2) % MCV 97.4 (76.7-100.5) fL MCH 31.9 (23.9-33.9) pg MCHC 32.8 (31.9-34.8) g/dL RDW 12.9 (12.3-16.5) % Plt Count 348 (151-488) x10(3)uL MPV 7.8 (7.1-12.4) fL Add Manual Diff Yes Neutrophils % (Manual) 84 H (46-82) % Band Neutrophils % 3 (0-6) % Lymphocytes % (Manual) 9 L (13-37) % Monocytes % (Manual) 4 (4-12) % Sodium 137 (135-145) mmol/L Potassium 3.7 (3.5-5.3) mmol/L Chloride 101 (100-110) mmol/L Carbon Dioxide 29 (21-32) mmol/L BUN 15 (7-18) mg/dL Creatinine 0.8 (0.55-1.02) mg/dL Est Cr Clr Drug Dosing 44.08 mL/min Estimated GFR (MDRD) > 60 (>60) BUN/Creatinine Ratio 18.8 (9-20) Glucose 110 (80-116) mg/dL Lactic Acid 1.0 (0.4-2.0) mmol/L Calcium 8.4 L (8.6-10.2) mg/dL Total Bilirubin 0.5 (0.1-1.3) mg/dL AST 12 D (5-25) IU/L ALT 17 D (12-36) U/L Alkaline Phosphatase 69 (56-112) IU/L Total Protein 7.2 (6.0-8.0) g/dL Albumin 3.5 (3.2-4.6) g/dL Globulin 3.7 g/dL Albumin/Globulin Ratio 1.0 Departure - Departure Time of Disposition: 08:30 Disposition: Home, Self-Care 01 Condition: Good Clinical Impression: Pneumonia - Discharge Information Prescriptions: Azithromycin [Zithromax] 500 mg PO DAILY #5 tab Ondansetron [Zofran ODT] 4 mg PO Q4H PRN #5 tab.dis PRN Reason: Nausea Instructions: Pneumonitis Referrals: Velasquez Joyner MD [Primary Care Provider] - Forms: ED Department Discharge Additional Instructions: Please read discharge instructions on pneumonia Drink at least 2 liters of water daily Take Zithromax 500mg daily with food Zofran ODT 4 mg every 4 mg every 4 hours as needed for nausea Follow up with your doctor in 3-5 days Sepsis Event Note (ED) - Evaluation Sepsis Screening Result: No Definite Risk - Focused Exam Vital Signs: Vital Signs Temp Pulse Resp BP Pulse Ox 12/21/20 07:35 37.0 C 112 H 20 199/87 H 95 - My Orders Last 24 Hours: My Active Orders 12/21/20 07:49 Chest 1V Frontal [CR] Stat - Assessment/Plan Last 24 Hours: My Active Orders 12/21/20 07:49 Chest 1V Frontal [CR] Stat
--- NOTE | 2020-12-21 17:27 | CR ---
INDICATION: Cough. AP portable upright view of the chest 12/21/20 was compared with 12/04/20 and 09/20/12. Infiltration seen in the left lung field on the previous study appears to have intensified peripheral to the hilum, but also shows somewhat decreased infiltration more centrally. No other change or new acute process was identified. The heart remains within normal limits in size. The aorta is calcified in the arch area. Dextroconcave scoliosis lower thoracic spine again noted. Degenerative changes noted at the glenohumeral joint on the right. IMPRESSION: Continued infiltrate, but somewhat decreased overall in the left mid to lower lung field. MTDD
== END 2020-12-21 08:45 | disposition home or self-care (01) ==
LOC: FB.ED 07:31
DX: J18.9 Pneumonia, unspecified organism (principal); I10 Essential (primary) hypertension; K21.9 Gastro-esophageal reflux disease without esophagitis; Z79.82 Long term (current) use of aspirin; Z79.899 Other long term (current) drug therapy
CPT/HCPCS: 36415; 71045; 80053; 83605; 85025; 99284-25

== ENCOUNTER 2023-04-05 06:29 | Emergency (ER) | payer MEDICARE ==
[2023-04-05 07:09] LABS: HEMOGLOBIN 12.4 g/dL (11.4-15.5); MEAN CORPUSCULAR HEMOGLOBIN 31.8 pg (23.9-33.9); MEAN CORPUSCULAR HGB CONC 32.6 g/dL (31.9-34.8); MEAN CORPUSCULAR VOLUME 97.3 fL (76.7-100.5); MEAN PLATELET VOLUME 7.5 fL (7.1-12.4); PLATELET COUNT,PLT 283 x10(3)uL (151-488); RED BLOOD CELL COUNT 3.91 x10(6)uL (3.60-5.20); WHITE BLOOD CELL COUNT,WBC 14.9 x10-3/uL (3.0-10.3)
[2023-04-05 07:13] LABS: BLOOD UREA NITROGEN,BUN 9 mg/dL (7-18); BUN/CREATININE RATIO 12.9 (9-20); CARBON DIOXIDE,CO2 29 mmol/L (21-32); CHLORIDE,CL 101 mmol/L (100-110); CREATININE 0.7 mg/dL (0.55-1.02); EST CRCL DRUG DOSING (CG) 47.54 mL/min; ESTIMATED GFR 85 mL/min (>60); GLUCOSE RANDOM 106 mg/dL (80-116); POTASSIUM,K 3.8 mmol/L (3.5-5.3); SODIUM,NA 139 mmol/L (135-145)
[2023-04-05 07:19] LABS: A/G RATIO 0.9; ALANINE AMINOTRANSFERASE,ALT 16 U/L (12-36); ALBUMIN 3.1 g/dL (3.2-4.6); ALKALINE PHOSPHATASE 68 IU/L (56-112); ASPARTATE AMNIOTRANSFERASE,AST 15 IU/L (5-25); BILIRUBIN TOTAL 0.4 mg/dL (0.1-1.3); LYMPHOCYTES PERCENT MAN 4 % (13-37); MONOCYTES PERCENT MAN 4 % (4-12); PROTEIN TOTAL,TP 6.7 g/dL (6.0-8.0); SEG NEUTROPHILS PERCENT MAN 92 % (46-82)
[2023-04-05 07:23] LABS: LACTIC ACID 0.7 mmol/L (0.4-2.0)
[2023-04-05 07:46] LABS: BILIRUBIN,URINE NEGATIVE (NEGATIVE); GLUCOSE,URINE NORMAL (NORMAL); KETONES,URINE NEGATIVE (NEGATIVE); LEUKOCYTE ESTERASE,URINE NEGATIVE (NEGATIVE); NITRITE,URINE NEGATIVE (NEGATIVE); OCCULT BLOOD,URINE MODERATE (NEGATIVE); PROTEIN,URINE NEGATIVE (NEGATIVE); UROBILINOGEN,URINE NORMAL (NEGATIVE)
[2023-04-05 07:47] LABS: APPEARANCE,URINE CLEAR (CLEAR); BACTERIA,URINE OCCASIONAL (NS); COLOR,URINE YELLOW (YELLOW); RBC,URINE 0-5 (0-5); SQUAMOUS EPITHELIAL CELLS,UR OCCASIONAL (NS,R,O); WBC,URINE 0-5 (0-5)
[2023-04-09 13:12] LABS: LYME TOTAL ANTIBODY CIA Negative (Negative)
== END 2023-04-05 08:33 | disposition home or self-care (01) ==
LOC: FB.ED 06:29
DX: B34.9 Viral infection, unspecified (principal); I10 Essential (primary) hypertension; Z79.899 Other long term (current) drug therapy
CPT/HCPCS: 36415; 71045; 80053; 81001; 83605; 84439; 84443; 85025; 86618; 99283

== ENCOUNTER 2023-06-01 06:43 | Emergency (ER) | payer MEDICARE ==
[2023-06-01 07:45] LABS: HEMATOCRIT 34.9 % (34.2-48.2); MEAN CORPUSCULAR HEMOGLOBIN 32.7 pg (23.9-33.9); MEAN CORPUSCULAR HGB CONC 34.4 g/dL (31.9-34.8); MEAN PLATELET VOLUME 7.3 fL (7.1-12.4); PLATELET COUNT,PLT 325 x10(3)uL (151-488); RED BLOOD CELL COUNT 3.67 x10(6)uL (3.60-5.20); RED CELL DISTRIBUTION WIDTH 13.3 % (12.3-16.5); WHITE BLOOD CELL COUNT,WBC 15.9 x10-3/uL (3.0-10.3)
[2023-06-01 07:51] LABS: BLOOD UREA NITROGEN,BUN 15 mg/dL (7-18); BUN/CREATININE RATIO 21.4 (9-20); CALCIUM 8.8 mg/dL (8.6-10.2); CARBON DIOXIDE,CO2 32 mmol/L (21-32); CHLORIDE,CL 101 mmol/L (100-110); CREATININE 0.7 mg/dL (0.55-1.02); EST CRCL DRUG DOSING (CG) 46.47 mL/min; ESTIMATED GFR 85 mL/min (>60); GLUCOSE RANDOM 119 mg/dL (80-116); POTASSIUM,K 3.9 mmol/L (3.5-5.3); SODIUM,NA 138 mmol/L (135-145)
[2023-06-01 07:56] LABS: A/G RATIO 0.7; ALANINE AMINOTRANSFERASE,ALT 16 U/L (12-36); ALBUMIN 2.9 g/dL (3.2-4.6); ALKALINE PHOSPHATASE 64 IU/L (56-112); ASPARTATE AMNIOTRANSFERASE,AST 13 IU/L (5-25); BILIRUBIN TOTAL 0.5 mg/dL (0.1-1.3); PROTEIN TOTAL,TP 6.8 g/dL (6.0-8.0)
[2023-06-01 08:06] LABS: BAND PERCENT MAN 3 % (0-6); LYMPHOCYTES PERCENT MAN 6 % (13-37); MONOCYTES PERCENT MAN 3 % (4-12); SEG NEUTROPHILS PERCENT MAN 88 % (46-82)
[2023-06-04 07:30] LABS: QUANTIFERON MITOGEN MINUS NIL 5.19 IU/mL; QUANTIFERON NIL 0.02 IU/mL; QUANTIFERON TB GOLD PLUS Negative (Negative)
== END 2023-06-01 09:25 | disposition home or self-care (01) ==
LOC: FB.ED 06:43
DX: J18.9 Pneumonia, unspecified organism (principal); I10 Essential (primary) hypertension; K21.9 Gastro-esophageal reflux disease without esophagitis; Z79.899 Other long term (current) drug therapy
CPT/HCPCS: 36415; 80053; 84443; 85025; 86140; 86480; 87040; 93005; 93010; 99283; 99284

== ENCOUNTER 2024-03-03 16:20 | Emergency (ER) | payer MEDICARE ==
[2024-03-03 16:47] LABS: BASOPHILS PERCENT AUTO 0.3 % (0.2-1.5); EOSINOPHILS ABSOLUTE AUTO 0.1 x10-3/uL (0.0-0.8); EOSINOPHILS PERCENT AUTO 1.4 % (0.6-8.1); HEMATOCRIT 30.4 % (34.2-48.2); LYMPHOCYTES ABSOLUTE AUTO 2.1 x10-3/uL (1.0-4.4); LYMPHOCYTES PERCENT AUTO 20.7 % (18.4-52.1); MEAN CORPUSCULAR HEMOGLOBIN 31.2 pg (23.9-33.9); MEAN CORPUSCULAR HGB CONC 32.8 g/dL (31.9-34.8); MEAN PLATELET VOLUME 8.2 fL (7.1-12.4); MONOCYTES ABSOLUTE AUTO 0.6 x10-3/uL (0.3-1.0); MONOCYTES PERCENT AUTO 5.6 % (4.4-15.7); NEUTROPHILS ABSOLUTE AUTO 7.2 x10-3/uL (1.5-6.3); PLATELET COUNT,PLT 199 x10(3)uL (151-488); RED CELL DISTRIBUTION WIDTH 13.9 % (12.3-16.5)
[2024-03-03 16:54] LABS: BLOOD UREA NITROGEN,BUN 16 mg/dL (7-18); BUN/CREATININE RATIO 26.7 (9-20); CALCIUM 8.2 mg/dL (8.6-10.2); CARBON DIOXIDE,CO2 30 mmol/L (21-32); CHLORIDE,CL 100 mmol/L (100-110); CREATININE 0.6 mg/dL (0.55-1.02); ESTIMATED GFR 87 mL/min (>60); GLUCOSE RANDOM 100 mg/dL (80-116); POTASSIUM,K 3.8 mmol/L (3.5-5.3); SODIUM,NA 136 mmol/L (135-145)
[2024-03-03 16:59] LABS: ALANINE AMINOTRANSFERASE,ALT 17 U/L (12-36); ALBUMIN 3.2 g/dL (3.2-4.6); ALKALINE PHOSPHATASE 59 IU/L (56-112); ASPARTATE AMNIOTRANSFERASE,AST 16 IU/L (5-25); BILIRUBIN TOTAL 0.3 mg/dL (0.1-1.3); PROTEIN TOTAL,TP 6.5 g/dL (6.0-8.0)
[2024-03-03 17:13] LABS: BILIRUBIN,URINE NEGATIVE (NEGATIVE); GLUCOSE,URINE NORMAL (NORMAL); KETONES,URINE NEGATIVE (NEGATIVE); LEUKOCYTE ESTERASE,URINE NEGATIVE (NEGATIVE); NITRITE,URINE NEGATIVE (NEGATIVE); OCCULT BLOOD,URINE MODERATE (NEGATIVE); PROTEIN,URINE NEGATIVE (NEGATIVE); UROBILINOGEN,URINE NORMAL (NEGATIVE)
[2024-03-03 17:14] LABS: APPEARANCE,URINE CLEAR (CLEAR); BACTERIA,URINE FEW (NS); COLOR,URINE YELLOW (YELLOW); RBC,URINE 0-5 (0-5); SQUAMOUS EPITHELIAL CELLS,UR FEW (NS,R,O); WBC,URINE 0-5 (0-5)
== END 2024-03-03 19:40 ==
LOC: FB.ED 16:20
DX: H53.9 Unspecified visual disturbance (principal); I10 Essential (primary) hypertension; K21.9 Gastro-esophageal reflux disease without esophagitis; Z79.899 Other long term (current) drug therapy
CPT/HCPCS: 36415; 70450; 80053; 81001; 82947; 84484; 85025; 93005; 99285